=== PATIENT | female | born 1985 | race Hispanic/Latino ===

== ENCOUNTER 2024-01-06 06:31 | Inpatient (IN) | payer OTHER, SELFPAY ==
[2024-01-06] VITALS (103 sets, daily range): BP systolic 101–146; BP diastolic 21–94; PULSE 25–112; RESP 16–18; TEMP 36.2–37.6; O2SAT 89–100; BMI 28.8
--- NOTE | 2024-01-06 06:31 | LDADM ---
This patient, Aislinn Alva, was admitted to Labor/Delivery/Recovery 107 on 01/06/24 at 06:31. Plans for labor, pain management and were discussed with patient. Patient/family oriented to hospital policies and general routines including ID bracelet, bed and alarms, visiting hours, pain management, procedures, bathroom and other care routines, personal items, smoking policy, room service/diet and guest tray routines, security routines, and visiting hours. Patient/Family are encouraged to report perceived risks to care and to ask questions if they do not understand what they are told or what they should do. See OBIX for further documentation.
[2024-01-06 07:15] LABS: Basophils Percent Auto 0.6 % (0.2-1.2); Eosinophils Absolute Auto 0.1 K/mm3 (0-0.3); Eosinophils Percent Auto 1.1 % (0-4.4); Hematocrit 38.3 % (37.0-47.0); Hemoglobin 13.1 g/dL (12.0-15.0); Immature Granulocyte Absolute 0.05 K/mm3 (0.00-0.031); Immature Granulocyte Percent A 0.8 % (0-0.5); Lymphocytes Percent Auto 20.5 % (18.3-44.2); Mean Corpuscular HGB Conc 34.2 g/dl (32-36); Mean Corpuscular Hemoglobin 33.6 pg (26-34); Mean Corpuscular Volume 98.2 fl (80-100); Mean Platelet Volume 12.5 fl (7.4-10.4); Monocytes Absolute Auto 0.5 K/mm3 (0.1-0.6); Monocytes Percent Auto 7.3 % (2.6-8.5); Neutrophils Absolute Auto 4.4 K/mm3 (1.3-6.7); Neutrophils Percent Auto 69.7 % (45.5-73.1); Platelet Count Result 127 k/mm3 (150-375); Red Cell Distribution Width 13.4 % (11.5-14.5); White Blood Count 6.3 K/mm3 (4.5-10.0)
--- NOTE | 2024-01-06 07:21 | P.PNAN_ITS ---
Anes - Eval Pre Procedure Procedure: labor epidural Date/Time: 01/06/24 07:21 Surgeon: adam Preop Diagnosis: pain during labor Pre Op Diagnosis: Induction of Labor Patient Data Age: 38 Gender: F Height: 1.52 m Weight: 67 kg Last Vital Signs Pulse 65 01/06/24 07:19 BP 117/87 01/06/24 07:19 Allergies Allergy/AdvReac Type Severity Reaction Status Date / Time No Known Allergies Allergy Verified 12/26/23 15:24 Home Medications Medication Instructions Recorded Confirmed Type vits no.126-ferrous fum 1 tablet PO DAILY 12/26/23 12/26/23 History 28 mg iron-folic acid 800 mcg tablet (Classic ) Patient hx anesthesia problems: none Family hx anesthesia problems: none Results Review: All pre-operative results and documents have been reviewed as part of the pre- operative evaluation. [facility] Family History Family History (Updated 12/26/23 @ 15:26 by Jaqueline Cardona RN) Other No pertinent family history Social History Social History Smoking status: Never smoker Substance use: never Do You Feel Safe in your Home?: Yes Lack of Transportation: No Lack of Food: Never True Current Housing: I Have Housing Concerned About Future Housing: No Difficulty Paying Gas/Electric Bills: No Difficulty Paying for Meds: No Currently Unemployed: No Education: Grade School Difficulty w/ Childcare or Family Care: No Spiritual care concerns: No Exam Day of Procedure 01/06/24 07:21
[2024-01-06] MEDS: miSOPROStol 25 MCG TABLET 50 MCG BUCCAL (07:25)
[2024-01-06 08:25] LABS: Rapid Plasma Reagin Non-Reactive (NonReactive)
[2024-01-06] MEDS: LACTATED RINGERS 1,000 ML 125 ML IV CONT ×2 (11:39→12:33)
--- NOTE | 2024-01-06 12:02 | WPDOBADMIT ---
Obstetrics - Admit Note Admission Note: record reviewed. No pertinent additions to the history and/or any subsequent changes in the physical findings that are not consistent with the expected course of the were found. Patient presents for MIL indicated for growth restriction at 10%. SACHA 5.2cm at last visit this week as well, with 2x2cm pocket of fluid maintained. Cytotec per protocol. Additions to the history and/or subsequent changes in the physical findings follow. None.
[2024-01-06] MEDS: OXYTOCIN 30 UNITS/NS 500 ML 30 UNITS/500 ML BAG IV CONT (12:34)
--- NOTE | 2024-01-06 13:12 | PM.OBPNLAB ---
Pain Control Date/time seen: 01/06/24 13:12 Pain control: tolerating well and epidural Pelvic Exam Dilation (cm): 4 Effacement (%): 80 station: -2 Amniotic membrane status: Ruptured Comments: bloody show, minimal fluid Contractions Monitor mode: External Contraction frequency: 3 Status status: Category l Assessment and Plan Pitocin rate (mU/min): 2 Assessment: induction ongoing Plan: continuous present management
[2024-01-06 13:29] LABS: HIV 1/2 Ab P24 Ag Result Negative (Negative)
[2024-01-06] MEDS: OXYTOCIN 30 UNITS/NS 500 ML 30 UNITS/500 ML BAG 125 UNITS IV CONT (14:38)
--- NOTE | 2024-01-06 14:40 | PM.OBPRVD ---
OB - Vaginal Delivery Note Procedure Delivery date: 01/06/24 Events: Intrauterine Growth Restriction (IUGR) Induction method: Per Misoprostol Protocol Delivery augmentation: Rupture of Membranes and Pitocin Delivery monitor: External FHT and External Uterine Route of delivery: Episiotomy description: None Laceration Description: None Specimen: Yes Quantitative Blood Loss (ml): 50 Anesthesia type: Epidural Disposition: Floor Complications: No immediate complications Narrative: See H&P and notes for details on patient's admission and labor. She progressed to complete cervical dilation and at the appropriate time began pushing. With adequate expulsive efforts by the mother, the baby's head was delivered without difficulty. Nuchal cord was not present. The baby's left shoulder was anterior and delivered under the pubic symphysis without difficulty. The posterior shoulder and the rest of the baby delivered without difficulty. The umbilical cord was doubly clamped and cut after 60 seconds of delayed cord clamping. Care of the infant was then assumed by the nursing staff. Baby Date of : 01/06/24 Gestational Age by Date: 38 Infant gender: Female presentation: vertex position: Left Occiput Anterior Placenta delivery description: Expressed Cord Vessel Description: 3 Vessels and Delayed Cord Clamping
--- NOTE | 2024-01-06 16:45 | PC.NURSE ---
RN getting pt up to the bathroom, found to be tearful in the room. RN asked pt if she has pain and she states yes. While in the bathroom, the RN asked if the pain is physical or environmental the pt stated him in reference to father of the baby in the room and continued to be tearful. Pt would not elaborate on what is bothering her at this time. pt was moved upstairs to with FOB. Pt denies any needing anything else from the RN at this time.
--- NOTE | 2024-01-06 18:57 | PC.NURSE ---
1800. Introductions were made, then consulted with patient to assess needs related to . Mother explains she would like to breastfeed but has had a hard time maintaining her supply in the past with older siblings. Encouraged understanding of the benefits of skin to skin (demonstrating unwrapping infant and placing upright on her chest), stimulating with massage touch, changing positions to encourage wakefulness, how to watch for early feeding cues, responsive feeding, feeding on demand (aiming for 8-12 times in 24 hours, about every 2-3 hours), milk production, building/maintaining a milk supply, duration of feeding, signs of adequate intake/output and how to record on the feeding sheet. Mother works well with her infant with encouragement and education. Reviewed positioning and ear, shoulder, hip alignment, supporting the breast to facilitate a deep latch, asymmetrical latch (off-center), leading with the chin with a big, open, wide gape and body close to mother. latched optimally to the right breast in cross cradle position. Education given to the mother of how to visualize the suckling (with good rocking jaw motion), swallows (dropping of the lower jaw) and how to listen for drinking at the breast (the ka sound). Infant was able to maintain latch without pain to mother protecting the nipple with optimal positioning and latching. Reviewed comfort measures of healing with a warm, wet washcloth to rinse breast, then leave open to air-dry, good handwashing when or touching the breast/nipples to prevent infection. Mother voiced understanding of skin to skin, stimulating with massage touch, responsive feedings, hand expressed colostrum, talking to infant to encourage if it has been 2 -2.5 hours since the start of the last , to call if does not latch, or if there is discomfort with . Inpatient resources provided with feeding sheet, name written on the communication board, and the mom/baby guide. Parents voiced understanding of information, demonstrated learning and will call if there is a request for assistance. Reported to the Primary RN.
[2024-01-06] MEDS: IBUPROFEN 600 MG TABLET PO (23:25)
[2024-01-07] VITALS: BP 126/83; PULSE 57; RESP 18; TEMP 36.8; O2SAT 97
[2024-01-07 05:15] LABS: Hematocrit 35.7 % (37.0-47.0)
[2024-01-07] MEDS: MULTIVIT/MIN/PREN/FOL AC/IRON TABLET 1 TAB PO (07:48)
[2024-01-07] MEDS: DOCUSATE SODIUM 100 MG CAPSULE PO ×2 (07:48→17:13)
[2024-01-07 07:50] VITALS: BP 116/70; PULSE 54; RESP 16; TEMP 36.5; O2SAT 97
--- NOTE | 2024-01-07 08:34 | PM.OBPNVD ---
OB - PN: Subj Subjective Date/time seen: 01/07/24 08:34 Patient comments: no complaints, pain well controlled, incisional pain, tolerating diet and flatus present OB - PN: Obj Data Labs 01/07/24 04:18 Labs: Laboratory Results - last 24 hr 01/06/24 01/07/24 06:57 04:18 Hgb 12.0 Hct 35.7 L HIV 1&2 Ab/P24 Ag 4thGn Negative OB - PN A/P Plan day: 3 Plan: routine care, discharge home and other Comments: Incision check in one week. Given precautions Time Spent With Patient Time: Total time spent is greater than 50% in coordination of care (as documented) at patient's floor/unit and/or counseling patient: Exam Const: General: comfortable, no acute distress and alert Resp: Effort & Inspection: normal respiratory effort Auscultation: no crackles, no rales and no rhonchi Cardio: Rate: regular rate Heart sounds: no click, no murmurs and no rubs GI: Inspection: non-distended GI Palp: No Tenderness to palpation present (GI) Auscultation: normal bowel sounds Other: Incision - CDI Extrem: General: normal to inspection, no pedal edema and no calf tenderness
--- NOTE | 2024-01-07 08:36 | PM.OBPNVD ---
OB - PN: Subj Subjective Date/time seen: 01/07/24 08:36 Patient comments: no complaints, pain well controlled, incisional pain, tolerating diet and flatus present OB - PN: Obj Data Labs 01/07/24 04:18 Labs: Laboratory Results - last 24 hr 01/06/24 01/07/24 06:57 04:18 Hgb 12.0 Hct 35.7 L HIV 1&2 Ab/P24 Ag 4thGn Negative OB - PN A/P Plan day: 1 Plan: routine care Comments: No problems, routine care Time Spent With Patient Time: Total time spent is greater than 50% in coordination of care (as documented) at patient's floor/unit and/or counseling patient: Exam Const: General: comfortable, no acute distress and alert Resp: Effort & Inspection: normal respiratory effort Auscultation: no crackles, no rales and no rhonchi Cardio: Rate: regular rate Heart sounds: no click, no murmurs and no rubs GI: Inspection: non-distended GI Palp: No Tenderness to palpation present (GI) Auscultation: normal bowel sounds Other: Incision - CDI Extrem: General: normal to inspection, no pedal edema and no calf tenderness
--- NOTE | 2024-01-07 09:54 | WPDANLDPN2 ---
Anes-Prog Note L&D Date/Time: 01/07/24 09:54 Comfortable throughout: labor and delivery Neuraxial method: epidural Epidural/Spinal procedure site: clean & non-tender Neuro status: Neuro function grossly intact. Cardiovascular status: normal Respiratory status: normal Airway patency: baseline Mental status: baseline Post-Op hydration status: normal Vital Signs: Last Vital Signs Temp 36.5 C 01/07/24 07:50 Pulse 54 L 01/07/24 07:50 Resp 16 01/07/24 07:50 BP 116/70 01/07/24 07:50 Pulse Ox 97 01/07/24 07:50 O2 Del Method Room Air 01/06/24 20:00 Pain score (VAS): 0 I/O: Intake & Output 01/06/24 01/07/24 01/07/24 23:59 07:59 15:59 Output Total 130 Balance -130 Post-procedural complaints: none Patient feedback: Patient satisfied with anesthetic care.
--- NOTE | 2024-01-07 11:05 | PC.NURSE ---
Introductions were made, then consulted with patient to assess needs related to . Mother led the conversation with her?plans to feed?her infant and the?experience so far. Mother has concerns that baby isn't getting enough . Reassured her this is normal and it takes a few days for milk production to increase. Infant blood sugars have been very good so far. Weight and output are appropriate for 's age. Encouraged mother to call for a latch check, or if does not latch, or if there is discomfort with . Mother voiced understanding of information, demonstrated learning and will call if there is a request for assistance. Reported to the Primary RN.
[2024-01-07 18:50] VITALS: BP 128/79; PULSE 70; RESP 16; TEMP 36.1; O2SAT 99
[2024-01-07] MEDS: IBUPROFEN 600 MG TABLET PO (19:10)
[2024-01-08 08:30] VITALS: BP 130/76; PULSE 61; RESP 16; TEMP 36.6; O2SAT 100; O2SAT 99
[2024-01-08] MEDS: MULTIVIT/MIN/PREN/FOL AC/IRON TABLET 1 TAB PO (08:44)
[2024-01-08] MEDS: DOCUSATE SODIUM 100 MG CAPSULE PO (08:44)
--- NOTE | 2024-01-08 10:41 | PM.OBPNVD ---
OB - PN: Subj Subjective Date/time seen: 01/08/24 10:41 Patient comments: no complaints, pain well controlled and tolerating diet OB - PN: Obj Data Labs 01/07/24 04:18 OB - PN A/P Plan day: 2 Plan: routine care and discharge home Time Spent With Patient Time: Total time spent is greater than 50% in coordination of care (as documented) at patient's floor/unit and/or counseling patient: Exam Const: General: comfortable and no acute distress Resp: Effort & Inspection: normal respiratory effort Auscultation: no rales, no rhonchi and no wheezes Cardio: Rate: regular rate Heart sounds: no click, no murmurs and no rubs GI: GI Palp: Yes Soft to palpation and No Tenderness to palpation present (GI) Auscultation: normal bowel sounds Extrem: General: normal to inspection, no pedal edema and no calf tenderness
--- NOTE | 2024-01-08 10:41 | PM.OBDSVD ---
DS: Admitting Diagnosis Discharge Date 01/08/24 Admitting Diagnosis term DS: Discharge Diagnosis Discharge Diagnosis (1) Term delivered: Code(s): O80 - Encounter for full-term uncomplicated delivery Status: Acute OB - DS: Summary OB Procedures : None OB Procedures Intrapartum: Spontaneous Vag Delivery OB Procedures: : None Peripartum Data Laceration Description: None Episiotomy description: None Time Spent with Patient Time attestation: Total time spent providing and/or coordinating discharge services: DS: Data Data Completed and Pending Pending studies at discharge: Pending at discharge 01/06/24 14:50 Surgical [PTH] Routine Discharge Plan Discharge Discharging Clinician: Flip Sommers Patient Disposition: Home, Self-Care Activity: pelvic rest Diet: regular Patient Instructions: Antibiotic Form Stand Alone Forms: General Discharge Information Follow-up/Referrals: Flip Sommers MD [Physician] - Discharge Medications: Continued Classic 28 mg iron- 800 mcg Tablet 1 tablet PO DAILY Date of admission: 01/06/24 06:31 Primary Care Provider: ErikDo Admitting Provider: Brodie Bowen Attending physician on admission: Brodie Bowen Condition: Stable
[2024-01-08] MEDS: ACETAMINOPHEN 325 MG TABLET 650 MG PO (15:55)
--- NOTE | 2024-01-08 18:00 | PCDIET ---
Patient discharged to no care bed.
[2024-01-10 10:39] VITALS: BP 114/83; PULSE 79; RESP 16; TEMP 36.9; O2SAT 99
== END 2024-01-08 16:00 | disposition home or self-care (01) | DRG 560 ==
LOC: ANHOB2 01-08 12:32 → ANHLDR 01-10 10:54 → ANHOB2 01-10 10:54
PROVIDERS: Admitting Provider Obstetrics & Gynecology; PCP Physician Assistant; Visit Provider Obstetrics & Gynecology
DX: O36.5930 Maternal care for other known or suspected poor fetal growth, third trimester, not applicable or unspecified (principal); Z37.0 Single live birth; Z3A.38 38 weeks gestation of pregnancy
CPT/HCPCS: 36415; 85014; 85018; 85025; 86592; 86703; 86850; 86900; 86901; 88307; A9270; G0432; J2590; J2795; J7120

== ENCOUNTER 2024-08-05 03:26 | Emergency (ER) | payer OTHER, SELFPAY ==
[2024-08-05 03:27] VITALS: BP 112/67; PULSE 77; RESP 18; TEMP 36.4; O2SAT 99
--- OUTSIDE RECORDS SUMMARY | 2024-08-05 03:28 | XMS_ITS | Data Portability ---
Author Organization [facility] [place] Address [address] [place] [address] [place] [address] Assessment No assessment recorded. Plan of Treatment Reminders Order Date Submit Date Provider Last Modified By Organization Details Last Modified Time Details Appointments None recorded. Lab None recorded. Referral None recorded. Procedures None recorded. Surgeries None recorded. Imaging non-stress test 2023 024 [email or web address] [place] [facility] [address], [place], [address], 4 03:35:53 US, obstetric, biophysical profile + non-stress test 2023 024 champ [place], [address], [place], [address], 4 22:28:32 US, doppler, umbilical artery velocimetry 2023 024 champ [place], [address], [place], [address], 4 22:28:32 US, obstetric, biophysical profile + non-stress test 2023 024 champ [place], [address], [place], [address], 4 22:01:51 US, doppler, umbilical artery velocimetry 2023 024 [email or web address] [place], [address], [place], [address], 22:01:51 Medication Orders None recorded. Patient TargetsNo targets recorded. Patient InstructionsNo instructions recorded. Reason for Referral None Reported. Results Created Date Observation Date Name Description Value Unit Range Abnormal Flag Note LastModifiedBy Organization Detail LastModifiedTime 12/21/19 24 12/21/2023 US, obste tric, follo w-up No observ ation record ed. [email or web address] [place] [address], [place], [address], 12/21/2023 13:07:37 12/21/19 24 12/21/2023 US, obste tric, follo w-up No observ ation record ed. [address], [place], [address], 12/23/2023 14:20:23 12/27/19 24 12/27/2023 US, obste tric, bioph ysica l profi le + non-s tress test No observ ation record ed. [email or web address] [place] [address], [place], [address], 12/27/2023 16:51:24 12/27/19 24 12/27/2023 US, doppl er, umbil ical arter y veloc imetr y No observ ation record ed. [email or web address] [place] [address], [place], [address], 12/27/2023 16:51:38 12/27/19 24 12/27/2023 US, obste tric, bioph ysica l profi le + non-s tress test No observ ation record ed. [email or web address] [address], [place], [address], 12/27/2023 16:33:14 12/27/19 24 12/27/2023 non-s tress test No observ ation record ed. [email or web address] [place] [address], [place], [address], 12/27/2023 16:31:57 01/03/20 24 01/03/2024 non-s tress test No observ ation record ed. [email or web address] [place] [address], [place], [address], 01/03/2024 15:43:28 01/03/20 24 01/03/2024 US, obste tric, bioph ysica l profi le No observ ation record ed. [address], [place], [address], 01/04/2024 22:23:19 01/03/20 24 01/03/2024 US, obste tric, bioph ysica l profi le + non-s tress test No observ ation record ed. [facility] [address], [place], [address], 01/03/2024 17:41:47 01/03/20 24 01/03/2024 US, doppl er, umbil ical arter y veloc imetr y No observ ation record ed. [facility] [address], [place], [address], 01/03/2024 17:42:01 Result Notes None recorded. Problems Name Problem SNOMED Code Status Onset Date Resolution Date Notes Provider Name and Address Organization Details Recorded Time Pregnanc y 51833557 Completed 202301/12/2024 Karson wiley, [facility] 4 14:53:25 Advanced maternal age 742132218 Completed JUSTYNA FENG MD [address], [place], [address], [facility] 4 12:44:22 History of growth retardat ion 2225791637 9108 Completed x3 JUSTYNA FENG MD [address], [place], [address], [facility] 4 12:44:22 Abnormal cervical Papanico laou smear 359056694 Completed unsure of abnormal ity, will try to get records JUSTYNA FENG MD [address], [place], [address], [facility] 4 12:44:22 Placenta circumva llata 7633354 Completed serial growth JUSTYNA FENG MD [address], [place], [address], [facility] 4 12:44:22 growth restrict ion 78334781 Active weekly dopplers /antenat al testing, [facility] 38-39wee in JUSTYNA FENG MD [address], [place], [address], [facility] 4 12:44:22 growth restrict ion 08664812 Completed weekly dopplers /antenat al testing, [facility] 38-39wee in JUSTYNA FENG MD [address], [place], [address], [facility] 4 12:44:22 Problem Notes None recorded. Procedures Surgical History Date Name Laterality Status Provider Name and Address Organization Details Recorded Time 4 Date of Last Pap Smear completed Iman Guevara [facility] 08/10/2023 14:17:07 8 procedure on gallbladder completed Iman Guevara [facility] 08/10/2023 14:07:35 Imaging Results Imaging Date Name Status LastModified by [email or web address] Details LastModified Time 12/21/2023 US, obstetric, follow-up completed [email or web address] [place] [address], [place], [address], 12/21/2023 13:07:37 12/21/2023 US, obstetric, follow-up completed [email or web address] [address], [place], [address], 12/23/2023 14:20:23 12/27/2023 US, obstetric, biophysical profile + non-stress test completed [address], [place], [address], 12/27/2023 16:51:24 12/27/2023 US, doppler, umbilical artery velocimetry completed [address], [place], [address], 12/27/2023 16:51:38 12/27/2023 US, obstetric, biophysical profile + non-stress test completed [email or web address] [address], [place], [address], 12/27/2023 16:33:14 12/27/2023 non-stress test completed [email or web address], [place], [address], 12/27/2023 16:31:57 01/03/2024 non-stress test completed [address], [place], [address], 01/03/2024 15:43:28 01/03/2024 US, obstetric, biophysical profile completed [email or web address] [address], [place], [address], 01/04/2024 22:23:19 01/03/2024 US, obstetric, biophysical profile + non-stress test completed [facility] [address], [place], [address], 01/03/2024 17:41:47 01/03/2024 US, doppler, umbilical artery velocimetry completed [facility] [address], [place], [address], 01/03/2024 17:42:01 Procedure Notes None recorded. Medical Equipment None Reported. Allergies No known drug allergies Medications Name Sig Start Date Stop Date Status Note LastModified by Organization Details LastModified Time Miralax 17 gram/dose oral powder Take 17 g every day by oral route. 2023 active Not Available Not Available Not Avai lable metronidazo le 500 mg tablet TAKE 1 TABLET BY MOUTH TWICE DAILY FOR 7 DAYS 08/09 completed Not Available Not Available Not Available Pepcid 20 mg tablet Take 1 tablet twice a day by oral route. 2023 active Not Available Not Available Not Avai lable 28 mg iron-800 mcg tablet TAKE 1 TABLET BY MOUTH ONCE DAILY active Not Available Not Available No t Available Anusol-HC 2.5 % topical cream with perineal applicator APPLY A THIN LAYER TO THE AFFECTED AREA(S) BY TOPICAL ROUTE 2-4 TIMESDAIL Y 2023 active Not Available Not Available Not Avai lable Vitals Date Recorded Body height Body mass index (BMI) Body weight Systolic blood pressure Diastolic blood pressure Provider Name and Address Organization Details Last Updated DateTime 12/27/2023 160.02 cm 25.9 kg/m2 42706.49 g 116 mm[Hg] 76 mm[Hg] [facility] 15:42:02 Date Recorded Body height Body mass index (BMI) Body weight Systolic blood pressure Diastolic blood pressure Provider Name and Address Organization Details Last Updated DateTime 01/03/2024 160.02 cm 26.1 kg/m2 84745.52 g 117 mm[Hg] 76 mm[Hg] [facility] 15:46:15 Date Recorded Body height Body mass index (BMI) Body weight Systolic blood pressure Diastolic blood pressure Provider Name and Address Organization Details Last Updated DateTime 02/21/2024 160.02 cm 24.8 kg/m2 63307.93 g 100 mm[Hg] 65 mm[Hg] Radha Meyer [facility] 12:05:47 Social History Question Answer Notes LastModified by Organizat ion Details LastModified Time In The 14 Days Before Symptom Onset, Have You Had Close Contact With A Laboratory-confirmed COVID-19 While That Case Was Ill? No Information not available 08/10/2023 In The 14 Days Before Symptom Onset, Have You Had Close Contact With A Person Who Is Under Investigation For COVID-19 While That Person Was Ill? No Information not available 08/10/2023 Have You Been To An Area Known To Be High Risk For COVID-19? No Information not available 08/10/2023 Sex: Unknown Functional Status None recorded. Mental Status None recorded. Family History Relationship Description Onset Age of this Age Resolved Age Notes LastModified by Organization Details LastModified Time Brother Karrie jacobson [email or web address] Not available 2023 14:07:14 Medical History Condition Response Allergies (Food, seasonal, environmental ) N Other N Drug/Latex Allergies/Reactions N Breast Cancer N Blood Transfusion N Lung Disease N Dermatologic Disorders N Defects or Inherited Disease N Breast Problem N Gestational Diabetes N Hematologic disorders N Anesthesia Complications N History of STI N Deep Vein Thrombosis N Polycystic ovary syndrome N Anxiety Disorder N Autoimmune disease N Arthritis N Polyps N Infertility N History of abnormal pap N Acid Reflux (GERD) N Cancer N Varicosities N Stroke N Neurologic/Epilepsy N Endometriosis N High Cholesterol N Headaches N Fibromyalgia N Kidney Disease N Heart Problems N Thyroid Problems N Kidney or Bladder Problems N GI Problems N Eating Disorder N Anemia N Art (IVF or FET) N Psychiatric Illness N Ovarian Cancer N Diabetes N Pulmonary (TB, Asthma) N Hepatitis/Liver Disease N No Past Medical History N Eczema N Urinary Tract Infection N Abuse/Domestic Violence N Asthma N Trauma/Violence N Depression/ depression N Heart Disease N Pre-Eclampsia N Hypertension N Osteoporosis N Thrombophilias N Gynecological History Statement/Question Response Abnormal Pap Y Date of LMP 04/09/2023 Sexually Active? Y STIs/STDs N HPV Vaccine N Date of Last Pap Smear 06/27/2023 Sexual Problems? N Current Control Method None Desired Control Method None LMP Definite Obstetrics History GPAL:G 6 P 5 0 1 5 Type Value Full Term 5 Spontaneous 1 Living 5 Total 6 Past Encounters Encounter ID Performer Location Encounter Start Date Encounter Closed Date Diagnosis/Indication Diagnosis SNOMED-CT Code Diagnosis ICD10 Code Diagnosis Note [id number] JUSTYNA FENG MD [place] [address],[place] [address] 08/10/2023 13:37:01 08/17/2023 11:05:38 Advanced maternal age 206187694 O09.522 History of growth retardation 6670394103 9108 Z87.59 Gestation period, 18 weeks 04027111 Z3A.18 [id number] [facility] [address],[place] [address] 08/29/2023 14:14:26 08/29/2023 15:38:04 screening for malformation 268450231 Z36.3 Z3A.20 [id number] JUSTYNA FENG MD [place] [address],[place] [address] 08/29/2023 14:14:56 08/30/2023 08:26:30 Placenta circumvallata 0501385 O43.119 Advanced m aternal age 409139429 O09.522 History of growth retardation 1223194881 9108 Z87.59 Gestation period, 20 weeks 33783735 Z3A.20 [id number] [facility] [address],[place] [address] 09/26/2023 12:16:38 09/26/2023 14:00:18 Placenta circumvallata 2558688 O43.112 O09.522 Z3A.24 [id number] JUSTYNA FENG MD [place] [address],[place] [address] 09/26/2023 12:16:58 09/26/2023 13:08:19 Placenta circumvallata 2552888 O43.119 Advanced m aternal age 521024854 O09.522 History of growth retardation 5353464027 9108 Z87.59 Gestation period, 24 weeks 286536537 Z3A.24 [id number] JUSTYNA FENG MD [place] [address],[place] [address] 10/25/2023 09:51:29 10/25/2023 12:04:42 Advanced maternal age 536968182 O09.523 Placenta circumvallata 7295511 O43.119 History of growth retardation 7246305079 9108 Z87.59 Gestation period, 28 weeks 46833230 Z3A.28 [id number] JUSTYNA FENG MD [place] [address],[place] [address] 11/09/2023 11:10:10 11/09/2023 11:51:14 growth restriction 64440042 O36.5999 Placenta circumvallata 6281007 O43.119 Advanced m aternal age 819878642 O09.523 Gestation period, 30 weeks 07016974 Z3A.30 Acid reflux 573802587 K2 1.9 Constipation 17187723 K5 9.00 [id number] [facility] [address],[place] [address] 11/22/2023 11:07:55 11/22/2023 11:49:20 Past history of small for gestational age baby 933969873 Z87.59 Z3A.32 [id number] JUSTYNA FENG MD [place] [address] [place] [address] 11/22/2023 11:08:27 11/22/2023 12:16:47 Hemorrhoids 77787961 K64.9 Gastroesop hageal reflux disease 342304162 K21.9 Placenta circumvallata 9377628 O43.119 History of growth retardation 2975688491 9108 Z87.59 Advanced m aternal age 953569450 O09.523 [id number] Josiane Rodrigues [place] [address] [place] [address] 12/21/2023 11:25:24 12/21/2023 11:57:44 Placenta circumvallata 7106015 O43.113 O36.5930 O09.523 Z3A.36 [id number] JUSTYNA FENG MD [place] [address] [place] [address] 12/21/2023 11:25:42 12/21/2023 12:46:38 growth restriction 88516611 O36.5999 Discussed diagnosis of FGR, recommenda tion for weekly testing and UADs as well as induction between 38-39 weeks. Placenta circumvallata 0293555 O43.119 Advanced m aternal age 538795387 O09.523 Gestation period, 36 weeks 18591002 Z3A.36 - continue PNV [id number] [facility] [address] [address] 12/27/2023 14:15:02 12/27/2023 15:29:08 Small for gestational age fetus 341368216 O36.5930 Z3A.37 [id number] Radha Meyer [place] [address],[place] [address] 12/27/2023 15:16:43 12/27/2023 15:50:46 growth restriction 96859443 O36.5999 [id number] JUSTYNA FENG MD [place] [address],[place] [address] 12/27/2023 15:17:05 12/27/2023 16:25:04 growth restriction 47810125 O36.5999 Discussed diagnosis of FGR, recommenda tion for weekly testing and UADs as well as induction between 38-39 weeks. Patient to call to schedule induction Placenta circumvallata 9338169 O43.119 Advanced m aternal age 463988996 O09.523 Gestation period, 37 weeks 52019947 Z3A.37 - continue PNV [id number] [facility] [address],[place] [address] 01/03/2024 14:33:41 01/03/2024 15:53:02 Small for gestational age fetus 072553637 O36.5930 O09.523 Z3A.38 [id number] Rehana Sanchez [place] [address],[place] [address] 01/03/2024 14:33:53 01/03/2024 15:52:35 growth restriction 68229164 O36.5999 Discussed diagnosis of FGR, recommenda tion for weekly testing and UADs as well as induction between 38-39 weeks. Patient to call to schedule induction [id number] JUSTYNA FENG MD [place] [address] [address] 01/03/2024 14:34:06 01/09/2024 11:42:32 growth restriction 93112464 O36.5999 - recommend delivery prior to 39w0d, patient desires to wait until 39w2d- discussed low SACHA, recommend repeat SACHA if undelivere d by 01/05- risks of delayed delivery including increased risk of stillbirth discussed with patient who voices understand ing Placenta circumvallata 5310717 O43.119 Advanced m aternal age 656993290 O09.523 - bASA Gestation period, 38 weeks 36155986 Z3A.38 - continue PNV [id number] JUSTYNA FENG MD [place] [address] [address] 02/21/2024 11:49:14 02/21/2024 12:32:22 care 401421441 Z39.2 S/p 4 weeks ago here today for a visit.1. Patient recovering well2. Plans to continue combo feeding3. Interested in patch for contracept ion at this time. Risks, benefits, and alternativ es reviewed with the patient. Will call if she would like to start.4. Patient instructed to follow up in 6 months for well woman exam unless need arises prior Low grade squamous intraepithelial lesion on cervical Papanicolaou smear 2784899795 9105 R87.612 - hx of LSIL pap smear- will repeat at 6 month [facility] Concerns Section Related Observation LastModified by Organization Detai ls LastModified Time None Recorded Concern Status LastModified by Organization Details LastModified Time None Recorded Advance Directives Directive None Recorded Payers Encounter Date Sequence Insurance Name Policy Number Policy Knapp Covered Member ID Knapp Member ID Guarantor Name 12/27/2023 1 [facility] ON OR AFTER 11/27/20 (MEDICAID REPLACEMENT - HMO) Aislinn Schneider [id number] Aislinn Schneider 01/03/2024 1 [facility] ON OR AFTER 11/27/20 (MEDICAID REPLACEMENT - HMO) Aislinn Farrells [id number] Aislinn Torresalos 01/03/2024 1 [facility] ON OR AFTER 11/27/20 (MEDICAID REPLACEMENT - HMO) Aislinn Farrells [id number] Aislinn Schneider 01/03/2024 1 [facility] ON OR AFTER 11/27/20 (MEDICAID REPLACEMENT - HMO) Aislinn Farrells [id number] Aislinn Schneider 02/21/2024 1 [facility] ON OR AFTER 11/27/20 (MEDICAID REPLACEMENT - HMO) Aislinn Farrells [id number] Aislinn Farrells Notes Date Note Type Note Provider Name and Address Organization Details Recorded Time 02/21/2024 text/html S/P on 01/05 a t 38 weeks gestation. was complicated by FGR. Complications with delivery: none. Patient denies any specific problems since delivery. Patient overall feeling well. Patient is combo feeding without problems. Has not had a period yet. No bleeding. Bowel and bladder function are normal. Pap due 2024. Denies any signs or symptoms of depression. Is coping with parenting well. Patient has not been sexually active since delivery. Patient is interested in contraception at this time. JUSTYNA FENG MD [address], [place], [address], [facility] 02/21/2024 12:29:07 OBGyn Episode Ob Episode Information Episode Created Date Number of Fetuses Patient Bloodtype Patient rh Status Prepregnancy Weight lbs Domestic Partner Domestic Partner Phone Father Name Dining Service Worker Status 08/10/19 24 1 CLOSED Fetus Data First Name Last Name Admitted to NICU Weight (g) Sex Living Outcome Pediatric Complications Fetus ID Race Codes Race Delivery Type 2976.47 0704 Full Term 45643 Vaginal Delivery Roshan Calculation Initial Roshan Date Initial Exam Date Initial Exam Provider Initial Ultrasound Date Last Menstrual Period Date Ultra Sound Weeks Gestation 0 Eighteen To Twenty Week Roshan Update Ultra Sound Date Fundal Height At Umbil Quickening Date Ultra Sound Latest Weeks Gestation Final Roshan Confirmed By Final Roshan Confirmed Date Final Roshan Date Ultra Sound Latest Days Gestation 0 0 Menstrual History Last Menstrual Date Menses Monthly On Bcp Conception Prior Menses Frequency Hcg Plus Date Menarche Onset Age Delivery Information Delivery Date Delivery Type Labor Anesthesia Weeks Gestation Incision Type Labor Labor Length Hrs Delivered By Post Complications Tubal Sterilization Discharge Date Comments 5 40 Discharge Information Feeding Method Contraceptive Method Maternal HG B and HCT Levels Ob Episode Information Episode Created Date Number of Fetuses Patient Bloodtype Patient rh Status Prepregnancy Weight lbs Domestic Partner Domestic Partner Phone Father Name Dining Service Worker Status 08/12/19 24 1 138 CLOSED Fetus Data First Name Last Name Admitted to NICU Weight (g) Sex Living Outcome Pediatric Complications Fetus ID Race Codes Race Delivery Type 2126.21 25 F true Full Term [id number] Vaginal Delivery Problems Problem Notes Problem Name Start Date End Date Resolution Snomed Code Not e Placenta circumvallata 8355265 serial growth Advanced maternal age 538534678 History of growth retardation 96211569613630 x3 Abnormal cervical Papanicolaou smear 152290541 unsure of abnormality, will try to get records growth restriction 26785472 weekly dopplers/antenat al testing, [place] 38-39weeks Roshan Calculation Initial Roshan Date Initial Exam Date Initial Exam Provider Initial Ultrasound Date Last Menstrual Period Date Ultra Sound Weeks Gestation 01/14/2024 08/12/2023 04/09/2023 0 Eighteen To Twenty Week Roshan Update Ultra Sound Date Fundal Height At Umbil Quickening Date Ultra Sound Latest Weeks Gestation Final Roshan Confirmed By Final Roshan Confirmed Date Final Roshan Date Ultra Sound Latest Days Gestation 0 08/17/2023 01/14/20 24 0 Pre-lynette Flowsheet Flowsheet Date 08/10/2023 Perdomo Score Blood Edema Fundus Height Fundus Units Glucose Ketones Leukocytes Nitrite Labor Signs Protein Cervic Dilation Cervic Effacement Cervic Station 18 Type Weight in lbs Pre/Post Dialysis Refused Weight 138.939900037367 BP Diastolic BP Location Tested BP Systolic BP Type 64 99 Fetus Heart Rate Present A 140 Fetus Movement A Yes Comments Patient presents to [facility] care. Patient reports headaches, improves with tylenol. Some movement. No cramping or bleeding. No nausea. Hx of FGR in 3 out of the 4 pregnancies. Denies HTN or GDM. x4. Had hx of abnormal pap smear in 06/27/23; patient unsure of what the abnormality was; will attempt to get records. Reports she has had labs drawn already, records not available. Will also attempt to get records prior to drawing again. Discussed bASA for AMA. No anatomy US yet, will return in 2 weeks. Flowsheet Date 08/29/2023 Perdomo Score Blood Edema Fundus Height Fundus Units Glucose Ketones Leukocytes Nitrite Labor Signs Protein Cervic Dilation Cervic Effacement Cervic Station Type Weight in lbs Pre/Post Dialysis Refused BP Diastolic BP Location Tested BP Systolic BP Type Fetus Heart Rate Present Fetus Movement Comments Flowsheet Date 08/29/2023 Perdomo Score Blood Edema Fundus Height Fundus Units Glucose Ketones Leukocytes Nitrite Labor Signs Protein Cervic Dilation Cervic Effacement Cervic Station Type Weight in lbs Pre/Post Dialysis Refused Weight 136.517337692696 BP Diastolic BP Location Tested BP Systolic BP Type 66 93 Fetus Heart Rate Present A 150 Fetus Movement A Yes Comments Doing well. Baby active. No cramping or bleeding. Has a lesion on leg, painful has been there for many months. Will set up with PCP for removal. Would like dental referral and counseling referral as well. Says she is doing well overall. Anatomy US complete and normal today, aside from circumvallate placenta. Plan for serial growth US. EFW 28%. RTC 4 weeks. Flowsheet Date 09/26/2023 Perdomo Score Blood Edema Fundus Height Fundus Units Glucose Ketones Leukocytes Nitrite Labor Signs Protein Cervic Dilation Cervic Effacement Cervic Station Type Weight in lbs Pre/Post Dialysis Refused BP Diastolic BP Location Tested BP Systolic BP Type Fetus Heart Rate Present Fetus Movement Comments Flowsheet Date 09/26/2023 Perdomo Score Blood Edema Fundus Height Fundus Units Glucose Ketones Leukocytes Nitrite Labor Signs Protein Cervic Dilation Cervic Effacement Cervic Station Type Weight in lbs Pre/Post Dialysis Refused Weight 139.388570837340 BP Diastolic BP Location Tested BP Systolic BP Type 63 97 Fetus Heart Rate Present A 157 Fetus Movement A Yes Comments Doing well. Good movem ent. No cramping or bleeding. Still do not have labs from prior office; will draw with GCT next visit. Seeing PCP on for leg lesion. EFW 17%, normal fluid. Vertex. Flowsheet Date 10/25/2023 Perdomo Score Blood Edema Fundus Height Fundus Units Glucose Ketones Leukocytes Nitrite Labor Signs Protein Cervic Dilation Cervic Effacement Cervic Station Type Weight in lbs Pre/Post Dialysis Refused Weight 144.329209538628 BP Diastolic BP Location Tested BP Systolic BP Type 70 105 Fetus Heart Rate Present A 155 Fetus Movement A Yes Comments Good movement. BH cont ractions, no bleeding or LOF. Had leg lesion removed, no issues. Returns on 10/30 for suture removal. Received labs, all normal. Low risk female NIPT. GCT and 28 week labs today. Will repeat growth US at 32 weeks due to hx of FGR x3 in prior pregnancies and low-normal EFW at 24 weeks. RTC 2 weeks. Flowsheet Date 11/09/2023 Perdomo Score Blood Edema Fundus Height Fundus Units Glucose Ketones Leukocytes Nitrite Labor Signs Protein Cervic Dilation Cervic Effacement Cervic Station Type Weight in lbs Pre/Post Dialysis Refused Weight 143.24061382270 BP Diastolic BP Location Tested BP Systolic BP Type 72 95 Fetus Heart Rate Present A 140 Fetus Movement A Yes Comments Doing well, baby active. No strong contractions, LOF, VB. Failed 1h GCT, passed 3h GTT. Having issues with constipation and hemorrhoids, discussed preparation H and miralax. Discussed Tdap vaccine. Also having reflux, will try pepcid. RTC 2 weeks for repeat growth US. Flowsheet Date 11/22/2023 Perdomo Score Blood Edema Fundus Height Fundus Units Glucose Ketones Leukocytes Nitrite Labor Signs Protein Cervic Dilation Cervic Effacement Cervic Station Type Weight in lbs Pre/Post Dialysis Refused BP Diastolic BP Location Tested BP Systolic BP Type Fetus Heart Rate Present Fetus Movement Comments Flowsheet Date 11/22/2023 Perdomo Score Blood Edema Fundus Height Fundus Units Glucose Ketones Leukocytes Nitrite Labor Signs Protein Cervic Dilation Cervic Effacement Cervic Station Type Weight in lbs Pre/Post Dialysis Refused BP Diastolic BP Location Tested BP Systolic BP Type Fetus Heart Rate Present A 144 Fetus Movement A Yes Comments Doing well, no issues. Good movement. Reflux improved with Tums. Hemorrhoids improving. EFW 11%, AC 12%, normal SACHA. Will continue to monitor growth with US at 36 weeks. Received tdap vaccine. Discussed preadmission appointment. RTC 2 weeks. Flowsheet Date 12/21/2023 Perdomo Score Blood Edema Fundus Height Fundus Units Glucose Ketones Leukocytes Nitrite Labor Signs Protein Cervic Dilation Cervic Effacement Cervic Station Type Weight in lbs Pre/Post Dialysis Refused BP Diastolic BP Location Tested BP Systolic BP Type Fetus Heart Rate Present Fetus Movement Comments Flowsheet Date 12/21/2023 Perdomo Score Blood Edema Fundus Height Fundus Units Glucose Ketones Leukocytes Nitrite Labor Signs Protein Cervic Dilation Cervic Effacement Cervic Station 1cm 50% -3 Type Weight in lbs Pre/Post Dialysis Refused Weight 144.552187722244 BP Diastolic BP Location Tested BP Systolic BP Type 73 111 Fetus Heart Rate Present A 130 Fetus Movement A Yes Comments Good movement. Rare co ntractions, no LOF or VB. EFW 10%, normal UADs. BPP 01/04. Discussed diagnosis of FGR, recommendation for weekly testing and UADs as well as induction between 38-39 weeks. Patient voices understanding and will discuss timing with . GBS collected today. SVe 1cm. RTC 1 week. Flowsheet Date 12/27/2023 Perdomo Score Blood Edema Fundus Height Fundus Units Glucose Ketones Leukocytes Nitrite Labor Signs Protein Cervic Dilation Cervic Effacement Cervic Station Type Weight in lbs Pre/Post Dialysis Refused BP Diastolic BP Location Tested BP Systolic BP Type Fetus Heart Rate Present Fetus Movement Comments Flowsheet Date 12/27/2023 Perdomo Score Blood Edema Fundus Height Fundus Units Glucose Ketones Leukocytes Nitrite Labor Signs Protein Cervic Dilation Cervic Effacement Cervic Station Type Weight in lbs Pre/Post Dialysis Refused BP Diastolic BP Location Tested BP Systolic BP Type Fetus Heart Rate Present Fetus Movement Comments Flowsheet Date 12/27/2023 Perdomo Score Blood Edema Fundus Height Fundus Units Glucose Ketones Leukocytes Nitrite Labor Signs Protein Cervic Dilation Cervic Effacement Cervic Station Type Weight in lbs Pre/Post Dialysis Refused Weight 146.832420771974 BP Diastolic BP Location Tested BP Systolic BP Type 76 116 Fetus Heart Rate Present Fetus Movement A Yes Comments Doing well, baby active. No ctx, LOF, VB. BPP 03/08. UADs wnl. Discussed again recommendation for induction between 38w-39w due to increased risk of stillbirth after that time. Patient voices understanding, will talk to and call clinic. If still , continue weekly testing. Flowsheet Date 01/03/2024 Perdomo Score Blood Edema Fundus Height Fundus Units Glucose Ketones Leukocytes Nitrite Labor Signs Protein Cervic Dilation Cervic Effacement Cervic Station Type Weight in lbs Pre/Post Dialysis Refused BP Diastolic BP Location Tested BP Systolic BP Type Fetus Heart Rate Present Fetus Movement Comments Flowsheet Date 01/03/2024 Perdomo Score Blood Edema Fundus Height Fundus Units Glucose Ketones Leukocytes Nitrite Labor Signs Protein Cervic Dilation Cervic Effacement Cervic Station Type Weight in lbs Pre/Post Dialysis Refused BP Diastolic BP Location Tested BP Systolic BP Type Fetus Heart Rate Present Fetus Movement Comments Flowsheet Date 01/03/2024 Perdomo Score Blood Edema Fundus Height Fundus Units Glucose Ketones Leukocytes Nitrite Labor Signs Protein Cervic Dilation Cervic Effacement Cervic Station Type Weight in lbs Pre/Post Dialysis Refused Weight 147.540914917685 BP Diastolic BP Location Tested BP Systolic BP Type 76 117 Fetus Heart Rate Present A 140 Fetus Movement A Yes Comments Intermittent ctx, no VB or L OF. Good movement. Discussed recommendation again for delivery by 39w0d due to growth restriction. Patient would like induction on 01/08 (39w2d); discussed risks including increased risk of stillbirth with FGR. Patient voices understanding and would like to wait until 01/08. SACHA 5.2cm today, recommend repeat SACHA on 01/05 if not delivered prior to r/o oligohydramnios. Menstrual History Last Menstrual Date Menses Monthly On Bcp Conception Prior Menses Frequency Hcg Plus Date Menarche Onset Age 1104/09/2023 Genetic Screening And Infection History Question Response Note Mental Retardation/Autism false Patient's Age Will Be 35 Years Or Older At Estim ated Date of Delivery true Thalassemia (Urdu, Eritrean, Mediterranean, Or Background): MCV < 80 false Neural Tube Defect (Meningomyelocele, Spina Bifi da, Or Anencephaly) false Congenital Heart Defect false Down Syndrome false Jadon-Sachs (eg, Mandaeism, Cajun, Cook Islander-Guatemalan) f alse Sachin Disease false Sickle Cell Disease Or Trait () false Hemophilia Or Other Blood Disorders false Muscular Dystrophy false Cystic Fibrosis false [place]'s Ch[place] false Intellectual Disability/Autism false If Yes, Was Person Tested For Fragile X? false Other Inherited Genetic Or Chromosomal Disorder false Maternal Metabolic Disorder (eg, Type 1 Diabetes , PKU) false Patient Or Baby's Father Had A Child With Defects Not Listed Above false Recurrent Loss, Or A Stillbirth false Medications (including Suppl ements, Vitamins, Herbs, OTC Drugs), Illicit/Recreational Drugs, Alcohol false If Yes, Agent(s) And Strength/Dosage false Any Other Genetic History false Live With Someone With TB Or Exposed To TB false Patient Or Partner Has History Of Genital Herpes false Rash Or Viral Illness Since Last Menstrual Perio d false History Of STD, Gonorrhea, Chlamydia, HPV, Syphi lis false Other Infection History false History of HIV false History of Hepatitis false Prior GBS-infected child false Hemoglobinopathy Or Carrier false Other Structural Defect false Recent Travel History Outside of Country false Delivery Information Delivery Date Delivery Type Labor Anesthesia Weeks Gestation Incision Type Labor Labor Length Hrs Delivered By Post Complications Tubal Sterilization Discharge Date Comments 4 Induce d Regional-Ep idural 38.6 false [place] Abnormal cervical Papanicol aou smear,Adv anced maternal age ,F etal growth restricti on,Histor y of growth retardati on,Placen ta circumval ivelisse; IUGR Discharge Information Feeding Method Contraceptive Method Maternal HG B and HCT Levels Ob Episode Information Episode Created Date Number of Fetuses Patient Bloodtype Patient rh Status Prepregnancy Weight lbs Domestic Partner Domestic Partner Phone Father Name Dining Service Worker Status 10/25/19 24 1 CLOSED Fetus Data First Name Last Name Admitted to NICU Weight (g) Sex Living Outcome Pediatric Complications Fetus ID Race Codes Race Delivery Type , [place] ous [id number] Roshan Calculation Initial Roshan Date Initial Exam Date Initial Exam Provider Initial Ultrasound Date Last Menstrual Period Date Ultra Sound Weeks Gestation 0 Eighteen To Twenty Week Roshan Update Ultra Sound Date Fundal Height At Umbil Quickening Date Ultra Sound Latest Weeks Gestation Final Roshan Confirmed By Final Roshan Confirmed Date Final Roshan Date Ultra Sound Latest Days Gestation 0 0 Menstrual History Last Menstrual Date Menses Monthly On Bcp Conception Prior Menses Frequency Hcg Plus Date Menarche Onset Age Delivery Information Delivery Date Delivery Type Labor Anesthesia Weeks Gestation Incision Type Labor Labor Length Hrs Delivered By Post Complications Tubal Sterilization Discharge Date Comments 3 Discharge Information Feeding Method Contraceptive Method Maternal HG B and HCT Levels Ob Episode Information Episode Created Date Number of Fetuses Patient Bloodtype Patient rh Status Prepregnancy Weight lbs Domestic Partner Domestic Partner Phone Father Name Dining Service Worker Status 08/10/19 24 1 CLOSED Fetus Data First Name Last Name Admitted to NICU Weight (g) Sex Living Outcome Pediatric Complications Fetus ID Race Codes Race Delivery Type Full Term [id number] Vaginal Delivery Roshan Calculation Initial Roshan Date Initial Exam Date Initial Exam Provider Initial Ultrasound Date Last Menstrual Period Date Ultra Sound Weeks Gestation 0 Eighteen To Twenty Week Roshan Update Ultra Sound Date Fundal Height At Umbil Quickening Date Ultra Sound Latest Weeks Gestation Final Roshan Confirmed By Final Roshan Confirmed Date Final Roshan Date Ultra Sound Latest Days Gestation 0 0 Menstrual History Last Menstrual Date Menses Monthly On Bcp Conception Prior Menses Frequency Hcg Plus Date Menarche Onset Age Delivery Information Delivery Date Delivery Type Labor Anesthesia Weeks Gestation Incision Type Labor Labor Length Hrs Delivered By Post Complications Tubal Sterilization Discharge Date Comments 7 38 Discharge Information Feeding Method Contraceptive Method Maternal HG B and HCT Levels Ob Episode Information Episode Created Date Number of Fetuses Patient Bloodtype Patient rh Status Prepregnancy Weight lbs Domestic Partner Domestic Partner Phone Father Name Dining Service Worker Status 08/10/19 24 1 CLOSED Fetus Data First Name Last Name Admitted to NICU Weight (g) Sex Living Outcome Pediatric Complications Fetus ID Race Codes Race Delivery Type Full Term [id number] Vaginal Delivery Roshan Calculation Initial Roshan Date Initial Exam Date Initial Exam Provider Initial Ultrasound Date Last Menstrual Period Date Ultra Sound Weeks Gestation 0 Eighteen To Twenty Week Roshan Update Ultra Sound Date Fundal Height At Umbil Quickening Date Ultra Sound Latest Weeks Gestation Final Roshan Confirmed By Final Roshan Confirmed Date Final Roshan Date Ultra Sound Latest Days Gestation 0 0 Menstrual History Last Menstrual Date Menses Monthly On Bcp Conception Prior Menses Frequency Hcg Plus Date Menarche Onset Age Delivery Information Delivery Date Delivery Type Labor Anesthesia Weeks Gestation Incision Type Labor Labor Length Hrs Delivered By Post Complications Tubal Sterilization Discharge Date Comments 0 39 Discharge Information Feeding Method Contraceptive Method Maternal HG B and HCT Levels Ob Episode Information Episode Created Date Number of Fetuses Patient Bloodtype Patient rh Status Prepregnancy Weight lbs Domestic Partner Domestic Partner Phone Father Name Dining Service Worker Status 08/10/19 24 1 CLOSED Fetus Data First Name Last Name Admitted to NICU Weight (g) Sex Living Outcome Pediatric Complications Fetus ID Race Codes Race Delivery Type 2721.55 2 Full Term [id number] Vaginal Delivery Roshan Calculation Initial Roshan Date Initial Exam Date Initial Exam Provider Initial Ultrasound Date Last Menstrual Period Date Ultra Sound Weeks Gestation 0 Eighteen To Twenty Week Roshan Update Ultra Sound Date Fundal Height At Umbil Quickening Date Ultra Sound Latest Weeks Gestation Final Roshan Confirmed By Final Roshan Confirmed Date Final Roshan Date Ultra Sound Latest Days Gestation 0 0 Menstrual History Last Menstrual Date Menses Monthly On Bcp Conception Prior Menses Frequency Hcg Plus Date Menarche Onset Age Delivery Information Delivery Date Delivery Type Labor Anesthesia Weeks Gestation Incision Type Labor Labor Length Hrs Delivered By Post Complications Tubal Sterilization Discharge Date Comments 5 38 Discharge Information Feeding Method Contraceptive Method Maternal HG B and HCT Levels
--- OUTSIDE RECORDS SUMMARY | 2024-08-05 03:28 | XMS_ITS | Clinical Summary ---
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 Gender Identity Not on file Sexual Orientation Not on file Plan of Treatment Health Maintenance Due Date Last Done Comments Hepatitis C Virus (HCV) Screening 1986 Hepatitis B Immunization (1 of 3 - 19+ 3-dose series) 2005 Pap Smear 09/10/2007 Cervical Cancer Screening (CCS) 2016 HPV/Cotest 2016 Influenza Immunization (#1) 2024 11/0 11/2018, 07/05/2016, 03/29/2015, Additional history exists SARS-COV-2 Immunization (2023- season) 2024 Respiratory Syncytial Virus (RSV) Immunization (Adult) (1 - 1-dose 75+ series) 2061 DTaP/Tdap/Td Immunization Discontinued 01/16/2017, TdaP Immunization Completed 01/16/2017 Meningococcal Immunization (ACWY) Aged Out No longer eligible based on patient's age to complete this topic Pneumococcal Immunization Combined Aged Out No longer eligible based on patient's age to complete this topic Rotavirus Immunization Aged Out No lo nger eligible based on patient's age to complete this topic
--- OUTSIDE RECORDS SUMMARY | 2024-08-05 03:28 | XMS_ITS | Data Portability ---
Author Organization [facility], autoContract Address [address] [place] [address] Assessment Encounter Date Assessment Date Assessment LastModified by Organization Details LastModified Time 10/19/2017 10/19/2017 32yo F w symptomatic cholelithiasis : Patient states that her insurance is expiring soon and there is a chance she may go to another surgeon to get her surgery done sooner. We will schedule her in the coming weeks and if she is still on the insurance, we will proceed. I discussed with the patient the risks and benefits of surgery, including the possibility of bile duct injury. I also mentioned a cystic duct leak and retained gallstones requiring ERCP later on. I explained the chance of open surgery and that there may be some changes in post-op bowel habits that may linger for a few weeks or need medication to correct. In addition, I did explain that there is no medical therapy that is a suitable alternative to cholecystectom y. They understood and wish to proceed. Any remaining questions were answered and we plan for surgery in the near future. [email or web address] Not available 10/25/2017 14:59:35 12/28/2017 12/28/2017 32yoF s/p lap mariella on 12/08. She is doing very well. Tolerating diet, eating fine. Satisfied with care thus far. I discussed the pathology report and all questions were answered. Discharge from clinic with PRN follow-up [email or web address] Not available 12/28/2017 12:59:05 Plan of Treatment Reminders Order Date Submit Date Provider Last Modified By Organization Details Last Modified Time Details Appointments None record ed. Lab None record ed. Referral None record ed. Procedures None record ed. Surgeries None record ed. Imaging None record ed. Medication Orders None record ed. Patient TargetsNo targets recorded. Patient InstructionsNo instructions recorded. Reason for Referral None Reported. Results Created Date Observation Date Name Description Value Unit Range Abnormal Flag Note LastModifiedBy Organization Detail LastModifiedTime 10/19/19 18 10/06/2017 US, abdom en No observ ation record ed. [email or web address] Not Available 17:56:11 Result Notes None recorded. Procedures Surgical History Date Name Laterality Status Provider Name and Address Organization Details Recorded Time 12/09/19 18 Laparoscopic cholecystectomy completed Mireille Shelton [facility] 12/15/2017 16:53:40 Imaging Results Imaging Date Name Status LastModified by Organiz ation Details LastModified Time 10/06/2017 US, abdomen completed [email or web address] Information not available 10/18/2017 17:56:11 Procedure Notes None recorded. Medical Equipment None Reported. Allergies No known drug allergies Medications Name Sig Start Date Stop Date Status Note LastModified by Organization Details LastModified Time [email or web address] active Not Available Not Available Not Available Vitals Date Recorded Body height Body mass index (BMI) Body weight Heart rate Systolic blood pressure Diastolic blood pressure Provider Name and Address Organization Details Last Updated DateTime 8 160.02 cm 22.1 kg/m2 76865.0 5 g 65 /min 135 mm[Hg] 85 mm[Hg] Mary Beth Nam [facility] 8 18:34:00 Date Recorded Body height Body mass index (BMI) Body weight Heart rate Systolic blood pressure Diastolic blood pressure Provider Name and Address Organization Details Last Updated DateTime 8 160.02 cm 20.7 kg/m2 23184.3 1 g 74 /min 101 mm[Hg] 70 mm[Hg] Mary Beth Nam [facility] 8 12:50:48 Social History Question Answer Notes LastModified by Organizat ion Details LastModified Time Tobacco Smoking Status Never Smoker Mary Beth Nam [facility] 10/19/2017 18:34:31 What Is Your Level Of Alcohol Consumption? None [email or web address] Information not available 10/19/2017 Is Blood Transfusion Acceptable In An Emergency? No [email or web address] Information not available 10/19/2017 Are You Currently Employed? Yes [email or web address] Information not available 10/19/2017 Marital Status [email or web address] Informat ion not available 10/19/2017 What Was The Date Of Your Most Recent Tobacco Screening? 10/19/2017 Information not available 12/20/2018 How Many Children Do You Have? 4 [email or web address] Information not available 10/19/2017 Sex: Unknown Functional Status None recorded. Mental Status None recorded. Family History Relationship Description Onset Age of this Age Resolved Age Notes LastModified by Organization Details LastModified Time Sister History of hypertension [email or web address] Not available 10/19/2017 18:34:27 Medical History Condition Response Coronary Artery Disease N Gout N Other N Thyroid Disease N Prostate Disease N Bleeding Disorders N Blood disorders N Bowl Obstruction N Urinary Incontinence N COPD N Anorexia N Depression N Anemia N Colon Polyps N Deep Vein Thrombosis N Kidney disease N Diabetes N Anxiety Disorder N Arthritis N Seizure N History of Heart Attack N Pain N Cancer N Stroke N Diverticulitis N Morbid Obesity N Asthma N HIV/AIDS N Fecal Incontinence N Sleep Apnea N High Cholesterol N GERD/Reflux N Hepatitis N Liver Disease N Pulmonay disease N Heart Disease N Pulmonary Embolism N PCOS N Hypertension N Gynecological HistoryNo gynecological history recorded. Obstetrics History GPAL:G 0 P 0 0 0 0 Past Encounters Encounter ID Performer Location Encounter Start Date Encounter Closed Date Diagnosis/Indication Diagnosis SNOMED-CT Code Diagnosis ICD10 Code Diagnosis Note [id number] Joo Contreras MD [facility] [address] [place] [address] 10/19/2017 18:03:55 10/21/2017 14:06:17 [id number] Joo Contreras MD [facility] [address] [place] [address] 12/28/2017 12:44:31 12/29/2017 18:20:45 Health Concerns Section Related Observation LastModified by Organization Detai ls LastModified Time None Recorded Concern Status LastModified by Organization Details LastModified Time None Recorded Advance Directives Directive None Recorded Payers Encounter Date Sequence Insurance Name Policy Number Policy Knapp Covered Member ID Knapp Member ID Guarantor Name 10/19/2017 1 [facility] (MEDICAID HMO) [facility] Aislinn Schneider [id number] Aislinn Schneider 12/28/2017 1 [facility] (MEDICAID HMO) [facility] Aislinn Schneider [id number] Aislinn Schneider Notes Date Note Type Note Provider Name and Address Organization Details Recorded Time 10/19/2017 text/html 32yo F who prese nted to the office for evaluation of cholelithiasis. Patient presented to [facility] ED on 10/06 with worsening abdominal pain over the course of a week and was found to have cholelithiasis without signs of cholecystitis. Patient was discharged home and given follow-up instructions. Joo Contreras MD [address], [place], [address], [facility] 10/25/2017 14:59:48 12/28/2017 text/html S/p lap mariella on 12/08. The patient is doing well with minimal pain. Wounds are healing well. No fevers. Tolerating diet and having normal BMs. Activity is improving slowly. They are here to discuss their pathology. Joo Contreras MD [address], [place], [address], [facility] 01/03/2018 14:19:14 OBGyn Episode No OBEpisode recorded.
--- NOTE | 2024-08-05 03:39 | ED.GENADULT ---
HPI - General Adult General Chief complaint: Unspecified Stated complaint: sore throat Time Seen by Provider: 08/05/24 03:27 Source: patient Mode of arrival: ambulatory Limitations: no limitations History of Present Illness HPI narrative: This is a 34-year-old febrile , presents to the emergency department complaining of sore throat, runny nose, cough myalgias for the past 3 days. She rates her pain 7/10. She complains of nausea, though denies vomiting or diarrhea. She denies any known sick contacts or recent travel. She states she believes she may be . She states her last menstrual period was June 08, 2024 though she has irregular periods. She has no other complaints at this time. Related Data Home Medications ?Medication ?Instructions ?Recorded ?Confirmed ?Last Taken ?Type vits no.126-ferrous fum 1 tablet PO DAILY 12/26/23 12/26/23 1 Day Ago History 28 mg iron-folic acid 800 mcg ~12/25/23 tablet (Classic ) Allergies Allergy/AdvReac Type Severity Reaction Status Date / Time No Known Allergies Allergy Verified 12/26/23 15:24 Review of Systems Review of Systems: Last menstrual period June 08, 2024 All systems reviewed & are unremarkable except as noted in HPI and below PMFSH Past Medical History Medical History (Updated 08/05/24 @ 05:29 by Alek Pineda MD) No significant past medical history Surgical History Surgical History (Updated 08/05/24 @ 03:42 by Alek Pineda MD) No significant past surgical history Family History Family History Other No pertinent family history Social History Social History Smoking status: Never smoker Substance use: never Do You Feel Safe in your Home?: Yes Lack of Transportation: No Lack of Food: Never True Current Housing: I Have Housing Concerned About Future Housing: No Difficulty Paying Gas/Electric Bills: No Difficulty Paying for Meds: No Currently Unemployed: No Education: Grade School Difficulty w/ Childcare or Family Care: No Spiritual care concerns: No Exam Narrative: GENERAL: Well-developed, well-nourished, and in no acute distress. Appears tired HEAD: Normocephalic, atraumatic. EYES: PERRLA and EOMI. ENT: Nares clear, no rhinorrhea or epistaxis. Mucous membranes moist. Oropharynx with tonsillar erythema without hypertrophy exudate or other lesions. NECK: Supple. No adenopathy or masses. CHEST: Clear to auscultation. No respiratory distress. No wheezes rales or rhonchi HEART: Regular rate and rhythm. No murmur heard. Normal peripheral pulses. ABDOMEN: Soft, nontender, nondistended, normal active bowel sounds. EXTREMITIES: Normal range of motion. No edema. SKIN: Warm, dry, no rash. NEURO: Alert and oriented x3. No focal deficit. Moving all 4 limbs spontaneously PSYCH: Normal mood and affect. Course Course Emergency Course: 05:28 - test positive. Urinalysis not concerning for urinary tract infection. The patient tested negative for COVID, influenza and RSV. A strep RT PCR was negative. I suspect a separate viral upper respiratory infection as the cause of the patient's symptoms. Will discharge with recommendation for supportive care and primary care/OB follow-up. I discussed the findings and recommendations with the patient. Discussed return and emergency precautions including signs/symptoms of ACS and respiratory distress. The patient voiced understanding and agreement with the plan. All questions answered to her satisfaction. Vital Signs Vital signs: Vital Signs Temperature 97.6 F 08/05/24 03:27 Pulse Rate 77 08/05/24 03:27 Respiratory Rate 18 08/05/24 03:27 Blood Pressure 112/67 08/05/24 03:27 Pulse Oximetry 99 08/05/24 03:27 Oxygen Delivery Room Air 08/05/24 03:27 Temperature 97.6 F 08/05/24 03:27 Pulse Rate 77 08/05/24 03:27 Respiratory Rate 18 08/05/24 03:27 Blood Pressure 112/67 08/05/24 03:27 Pulse Oximetry 99 08/05/24 03:27 Oxygen Delivery Room Air 08/05/24 03:27 Medical Decision Making MDM Narrative Medical decision making narrative: Plan: Labs, symptomatic control, reassess Differential Diagnosis Differential Diagnosis: , UTI, COVID, RSV, influenza, viral pharyngitis, strep pharyngitis, other Vital Signs Vital Signs: Vital Signs Temperature 97.6 F 08/05/24 03:27 Pulse Rate 77 08/05/24 03:27 Respiratory Rate 18 08/05/24 03:27 Blood Pressure 112/67 08/05/24 03:27 Pulse Oximetry 99 08/05/24 03:27 Oxygen Delivery Room Air 08/05/24 03:27 Temperature 97.6 F 08/05/24 03:27 Pulse Rate 77 08/05/24 03:27 Respiratory Rate 18 08/05/24 03:27 Blood Pressure 112/67 08/05/24 03:27 Pulse Oximetry 99 08/05/24 03:27 Oxygen Delivery Room Air 08/05/24 03:27 Lab Data Labs: Lab Results 08/05/24 08/05/24 08/05/24 Range/Units 03:53 03:54 03:56 Urine Color Yellow (Yellow) Urine Appearance Clear (Clear) Urine pH 6.5 (5.0-9.0) Ur Specific [place] 1.018 (1.001-1.035) Urine Protein Negative (Negative) mg/dL Urine Glucose (UA) Negative (Negative) mg/dL Urine Ketones Negative (Negative) mg/dL Ur Blood (Man) Negative (Negative) Urine Nitrate Negative (Negative) Urine Bilirubin Negative (Negative) Urine Urobilinogen 0.2 (<2.0) mg/dL Leukocyte Esterase Rfl Negative (Negative) DAYO/UL POC Urine HCG, Qual Positive (Negative) Influenza A (RT-PCR) Negative (Negative) Influenza B (RT-PCR) Negative (Negative) RSV (RT-PCR) Negative (Negative) SARS-CoV-2 RNA (RT-PCR) Negative (Negative) Group A Strep (PCR) Pending Discharge Plan Discharge Clinical Impression: Acute sore throat, , Upper respiratory infection, viral Patient Disposition: Home, Self-Care Condition: Stable Instructions: Antibiotic Form, at 7 to 10 Weeks (ED) Additional Instructions: You were seen in the emergency department. You tested negative for COVID, influenza and RSV. A test was positive. Your urinalysis was not concerning for urinary tract infection. You tested negative for strep. I suspect your symptoms are related to a separate viral infection. I recommend plenty of fluids, vitamins and Tylenol as needed for pain. I recommend following up with your primary care doctor and OB doctor. If you develop rapidly spreading neck swelling with fevers and increasing pain, difficulty breathing, difficulty swelling, or if you have other emergent concerns for life, limb, or eyesight, return to the emergency department. Patient Language: Polish Prescriptions: No Action Classic 28 mg iron- 800 mcg Tablet 1 tablet PO DAILY Follow-up/Referrals: Jesse,HOLLI Jha [Primary Care Provider] - 2 Weeks Brodie Bowen MD [Physician] - 2 Weeks Time of Disposition: 05:29
--- OUTSIDE RECORDS SUMMARY | 2024-08-05 03:50 | XMS_ITS | Clinical Summary ---
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
[2024-08-05 03:59] LABS: BEDSIDEPREGUCG Positive (Negative)
[2024-08-05 04:10] LABS: Add Urine Microscopic? NO; Appearance Urine Clear (Clear); Bilirubin Urine Negative (Negative); Blood Urine Negative (Negative); Color Urine Yellow (Yellow); Glucose Urine UA Negative (Negative); Ketones Urine Negative (Negative); Leukocyte Esterase Ur Negative LEU/UL (Negative); Nitrate Urine Negative (Negative); Protein Urine Negative (Negative); Specific Grav Ur 1.018 (1.001-1.035); Urobilinogen Urine 0.2 mg/dL (<2.0); pH Urine 6.5 (5.0-9.0)
[2024-08-05 04:46] LABS: Influenza A QL RT-PCR Negative (Negative); Influenza B QL RT-PCR Negative (Negative); RSV RNA, RT-PCR Negative (Negative); SARS-CoV-2 RNA PCR Negative (Negative)
[2024-08-05 05:26] LABS: Strep Group A RT-PCR NOT DETECTED (Negative)
== END 2024-08-05 05:44 | disposition home or self-care (01) ==
PROVIDERS: Emergency Provider Preventive Medicine Aerospace Medicine; PCP Physician Assistant
DX: O99.519 Diseases of the respiratory system complicating pregnancy, unspecified trimester (principal); J06.9 Acute upper respiratory infection, unspecified; J02.9 Acute pharyngitis, unspecified; Z20.822 Contact with and (suspected) exposure to COVID-19
CPT/HCPCS: 81003; 81025; 87637; 87651; 99283

== ENCOUNTER 2025-02-27 21:21 | Observation (INO) | payer OTHER, SELFPAY ==
--- NOTE | ~2025-02-27 | US_ITS ---
EXAMINATION: US OB BPP wo non-stress DATE: 02/28/2025 08:18 CDT INDICATION: GI bleeding TECHNIQUE: Real-time transabdominal obstetric ultrasound. FINDINGS: No prior studies for comparison. There is a single living fetus in vertex presentation. The placenta is fundal without placenta previa. cardiac activity and movement is noted with a heart rate of 134 beats per minute. SACHA is normal measuring 8.9 cm. Biophysical profile: breathin of 2 movement: 2 of 2 tone: 2 of 2 Amniotic flud pocket: 2 of 2 Total score: 8 of 8 IMPRESSION: 1. Single living intrauterine in vertex presentation. 2: Total biophysical profile score of 8/8. Reviewed, dictated and finalized at location B.
--- OUTSIDE RECORDS SUMMARY | 2025-02-27 21:40 | XMS_ITS | Continuity of Care Document ---
Author Organization [facility] Address [address] [place] [address] Assessment No assessment recorded. Plan of Treatment Reminders Order Date Submit Date Provider Last Modified By Organization Details Last Modified Time Details Appointments U/S OB BPP 2024 10:00A M ULTRASOUND Not available Not available Not available NST 2024 10:30A M NST SCHEDULE Not available Not available Not available OB ROUTINE 2024 11:00A M JUSTYNA FENG MD Not available Not available Not available U/S OB BPP 2024 10:30A M ULTRASOUND Not available Not available Not available NST 2024 11:00A M NST SCHEDULE Not available Not available Not available OB ROUTINE 2024 11:30A M JUSTYNA FENG MD Not available Not available Not available U/S OB BPP 2024 10:00A M ULTRASOUND Not available Not available Not available NST 2024 10:30A M NST SCHEDULE Not available Not available Not available OB ROUTINE 2024 11:00A M JUSTYNA FENG MD Not available Not available Not available Lab None recorde d. Referral None recorde d. Procedures None recorde d. Surgeries None recorde d. Imaging None recorde d. Medication Orders None recorde d. Patient TargetsNo targets recorded. Patient InstructionsNo instructions recorded. Reason for Referral None Reported. Results Created Date Observation Date Name Description Value Unit Range Abnormal Flag Note LastModifiedBy Organization Detail LastModifiedTime 10/09/19 25 10/08/2024 [UNIT Y] ANEUP LOIDY NIPT fraction 8.8% normal Not Available [facility] [address], [place], [address], 10/08/2024 16:18:49 10/09/19 25 10/08/2024 [UNIT Y] ANEUP LOIDY NIPT 22Q11.2 microdeletio n LOW RISK <1 in 10,000 normal Not Available [facility] [address], [place], [address], 10/08/2024 16:18:49 10/09/19 25 10/08/2024 [UNIT Y] ANEUP LOIDY NIPT sex chromosome aneuploidy NOT DETECT ED normal Not Available [facility] [address], [place], [address], 10/08/2024 16:18:49 10/09/19 25 10/08/2024 [UNIT Y] ANEUP LOIDY NIPT monosomy X LOW RISK <1 in 10,000 normal Not Available [facility] [address], [place], [address], 10/08/2024 16:18:49 10/09/19 25 10/08/2024 [UNIT Y] ANEUP LOIDY NIPT trisomy 13 LOW RISK <1 in 10,000 normal Not Available [facility] [address], [place], [address], 10/08/2024 16:18:49 10/09/19 25 10/08/2024 [UNIT Y] ANEUP LOIDY NIPT trisomy 18 LOW RISK <1 in 10,000 normal Not Available [facility] [address], [place], [address], 10/08/2024 16:18:49 10/09/19 25 10/08/2024 [UNIT Y] ANEUP LOIDY NIPT trisomy 21 LOW RISK <1 in 10,000 normal Not Available [facility] [address], [place], [address], 10/08/2024 16:18:49 10/09/19 25 10/08/2024 [UNIT Y] ANEUP LOIDY NIPT sex MALE normal Not Available [facility] [address], [place], [address], 10/08/2024 16:18:49 10/09/19 25 10/08/2024 [UNIT Y] ANEUP LOIDY NIPT gestation SINGLE TON normal Not Available [facility] [address], [place], [address], 10/08/2024 16:18:49 10/09/19 25 10/08/2024 [UNIT Y] ANEUP LOIDY NIPT for detailed report, see pdf See PDF normal Not Available [facility] [address], [place], [address], 10/08/2024 16:18:49 09/14/19 25 09/13/2024 CBC W/DIF F WBC 8.0 10'3/ uL 3.5-10 .5 Not Available [facility] (Lab) [address] [facility], [place], [address], 09/14/2024 10:49:07 09/14/19 25 09/13/2024 CBC W/DIF F RBC 3.92 10'6/ uL (based on docume nted legal sex) 3.80-5 .20 Not Available [facility] (Lab) [address] , [place], [address], 09/14/2024 10:49:07 09/14/19 25 09/13/2024 CBC W/DIF F HGB 12.8 g/dL (based on docume nted legal sex) 11.6-1 5.4 Not Available [facility] (Lab) [address], [place], [address], 09/14/2024 10:49:07 09/14/19 25 09/13/2024 CBC W/DIF F HCT 37.0 % (based on docume nted legal sex) 34.0-4 5.0 Not Available [facility] (Lab) [address], [place], [address], 09/14/2024 10:49:07 09/14/19 25 09/13/2024 CBC W/DIF F MCV 94.4 fL 80.0-9 9.0 Not Available [facility] (Lab) [address], [place], [address], 09/14/2024 10:49:07 09/14/19 25 09/13/2024 CBC W/DIF F MCH 32.7 pg 27.0-3 4.0 Not Available [facility] (Lab) [address], [place], [address], 09/14/2024 10:49:07 09/14/19 25 09/13/2024 CBC W/DIF F MCHC 34.6 g/dL 32.0-3 5.5 Not Available [facility] (Lab) [address], [place], [address], 09/14/2024 10:49:07 09/14/19 25 09/13/2024 CBC W/DIF F RDW 13.1 % 11.0-1 5.0 Not Available [facility] (Lab) [address], [place], [address], 09/14/2024 10:49:07 09/14/19 25 09/13/2024 CBC W/DIF F plt 211 10'3/ uL 150-40 0 Not Available [facility] (Lab) [address], [place], [address], 09/14/2024 10:49:07 09/14/19 25 09/13/2024 CBC W/DIF F MPV 11.4 fL 8.8-12 .1 Not Available [facility] (Lab) [address], [place], [address], 09/14/2024 10:49:07 09/14/19 25 09/13/2024 CBC W/DIF F neutrophils 70.4 % 34.0-7 3.0 Not Available [facility] (Lab) [address] [place], [address], 09/14/2024 10:49:07 09/14/19 25 09/13/2024 CBC W/DIF F lymphocytes 21.6 % 15.0-5 0.0 Not Available [facility] (Lab) [address] [facility], [place], [address], 09/14/2024 10:49:07 09/14/19 25 09/13/2024 CBC W/DIF F monocytes 5.5 % 1.0-15 .0 Not Available [facility] (Lab) [address] [facility], [place], [address], 09/14/2024 10:49:07 09/14/19 25 09/13/2024 CBC W/DIF F eosinophils 1.5 % 0.0-8. 0 Not Available [facility] (Lab) [address] [facility], [place], [address], 09/14/2024 10:49:07 09/14/19 25 09/13/2024 CBC W/DIF F basophils 0.6 % 0.0-2. 0 Not Available [facility] (Lab) [address] [facility], [place], [address], 09/14/2024 10:49:07 09/14/19 25 09/13/2024 CBC W/DIF F immature granulocytes 0.4 % no define d refere nce range Immat ure Granu locyt es (IG) repre sents autom ated enume ratio n of Metam yeloc ytes, Myelo cytes and Promy elocy neto when IG is < 5%. Blast s are not inclu ded in IG and repor roland separ ately if prese nt. Not Available [facility] (Lab) [address] [facility], [place], [address], 09/14/2024 10:49:07 09/14/19 25 09/13/2024 CBC W/DIF F absolute neutrophils 5.6 10'3/ uL 1.5-8. 0 Not Available [facility] (Lab) [address] [facility], [place], [address], 09/14/2024 10:49:07 09/14/19 25 09/13/2024 CBC W/DIF F absolute lymphocytes 1.7 10'3/ uL 1.0-4. 0 Not Available [facility] (Lab) [address] [facility], [place], [address], 09/14/2024 10:49:07 09/14/19 25 09/13/2024 CBC W/DIF F absolute monocytes 0.4 10'3/ uL 0.2-1. 0 Not Available [facility] (Lab) [address] [facility], [place], [address], 09/14/2024 10:49:07 09/14/19 25 09/13/2024 CBC W/DIF F absolute eosinophils 0.1 10'3/ uL 0.0-0. 6 Not Available [facility] (Lab) [address] [facility], [place], [address], 09/14/2024 10:49:07 09/14/19 25 09/13/2024 CBC W/DIF F absolute basophils 0.1 10'3/ uL 0.0-0. 3 Not Available [facility] (Lab) [address] [facility], [place], [address], 09/14/2024 10:49:07 09/14/19 25 09/13/2024 CBC W/DIF F absolute immature granulocytes 0.0 10'3/ uL 0.00-0 .10 Refer ence range s for nonbi nary/ inter sex or unspe cifie d gende r patie nts have not been estab lishe d. Pleas e refer to the follo wing table for range s estab lishe d for cisge nder patie nts and evalu ate in the clini sinan kalyani xt of the indiv idual patie nt: https ://umang nino book. nm.or g/gen derx Not Available [facility] (Lab) [address] [facility], [place], [address], 09/14/2024 10:49:07 09/14/19 25 09/13/2024 TYPE/ RH/SC REEN ABO/Rh type O POS Not Available [facility] (Lab) [address] [facility], [place], [address], 09/14/2024 10:49:07 09/14/19 25 09/13/2024 TYPE/ RH/SC REEN antibody screen NEG Not Available [facility] (Lab) [address] [facility], [place], [address], 09/14/2024 10:49:07 09/14/19 25 09/13/2024 TYPE/ RH/SC REEN exp date 2024 23:59 Not Available [facility] (Lab) [address] [facility], [place], [address], 09/14/2024 10:49:07 09/14/19 25 09/13/2024 HIV 1/2 ANTIG EN/AN TIBOD Y, REFLE X CONFI RMATI ON HIV antigen/anti body Nonrea ctive nonrea ctive HIV-1 antig en and HIV-1 /HIV- 2 antib odies were not detec roland. No labor atory evide nce of HIV infec tion. Not Available [facility] (Lab) [address] [facility], [place], [address], 09/14/2024 10:49:08 09/14/19 25 09/13/2024 HEPAT ITIS B SURFA CE ANTIG EN hepatitis B surface antigen Non-re active non-re active This assay was perfo rmed using [employer] ratio n reage nts and test kits. Value s obtai linus with other assay metho ds or kits canno t be used inter ferrera eably . Not Available [facility] (Lab) [address] [facility], [place], [address], 09/14/2024 10:49:08 09/14/19 25 09/13/2024 HEPAT ITIS C ANTIB LIDA SCREE N, REFLE X TO CONFI RMATI ON hepatitis C antibody Non-re active non-re active Antib odies to HCV Not Detec roland, does not exclu de the possi bilit y of expos ure to HCV. Not Available [facility] (Lab) [address], [place], [address], 09/14/2024 10:49:08 09/14/19 25 09/13/2024 RUBEL LA IGG ANTIB LIDA, QUANT rubella antibodies, IgG Reacti ve reacti ve Not Available [facility] (Lab) [address], [place], [address], 09/14/2024 10:49:09 09/14/19 25 09/13/2024 RUBEL LA IGG ANTIB LIDA, QUANT rubella antibodies, IgG quant 80.9 IU/mL >=10 Non-r eacti ve (Non- Immun e) <10 IU/mL React [place] (Immu ne) > or = 10 IU/mL Not Available [facility] (Lab) [address], [place], [address], 09/14/2024 10:49:09 09/14/19 25 09/13/2024 HEMOG LOBIN A1C hemoglobin A1C 5.3 % 4.0-5. 6 The Ameri can Diabe neto [employer]oc iatio n recom mends that a prima ry goal of thera py donald d be a HBA1C of < 7% and that physi cians shoul d reeva luate the treat ment regim en in patie nts with HBA1C value s consi stent ly > 8%. <5.7% Sherrell l 5.7 - 6.4% Incre ased risk for diabe neto >=6.5 % Diagn ostic of diabe neto <7.0% Goal of thera py >8.0% Actio n sugge sted Not Available [facility] (Lab) [address] [facility], [place], [address], 09/14/2024 10:49:09 09/14/19 25 09/13/2024 RPR SCREE N, REFLE X TITER /CONF IRMAT ION RPR qualitative Nonrea ctive nonrea ctive Not Available [facility] (Lab) [address] [facility], [place], [address], 09/14/2024 10:49:10 01/02/20 25 01/01/2025 GTT - GESTA LENARD L SCREE N, ACOG OB glucose, 1 hour screen 143 mg/dL 70-135 high Not Available [facility] (Lab) [address], [place], [address], 01/02/2025 11:30:22 09/14/19 25 09/13/2024 US, obste tric, nucha l trans lucen cy No observ ation record ed. [facility] [address], [place], [address], 09/13/2024 13:55:21 09/14/19 25 09/13/2024 US, obste tric, nucha l trans lucen cy No observ ation record ed. [email or web address] [facility] [address], [place], [address], 09/13/2024 22:02:23 11/02/19 25 11/01/2024 US, obste tric, 2nd or 3rd trime ster No observ ation record ed. [email or web address] [facility] [address], [place], [address], 11/01/2024 18:26:37 11/02/19 25 11/01/2024 US, obste tric, follo w-up No observ ation record ed. JUAN [address], [place], [address], 11/06/2024 14:11:53 08/05/01/01/2025 US, obste tric, follo w-up No observ ation record ed. [email or web address] [facility] [address], [place], [address], 01/01/2025 13:29:10 01/02/20 25 01/01/2025 US, obste tric, follo w-up No observ ation record ed. [facility] [address], [place], [address], 01/02/2025 17:47:01 02/06/2002/05/2025 US, obste tric, follo w-up No observ ation record ed. [email or web address] [facility] [address], [place], [address], 02/05/2025 12:45:30 02/06/2002/05/2025 US, obste tric, follo w-up No observ ation record ed. [email or web address] [address], [place], [address], 02/07/2025 00:00:31 02/27/2002/26/2025 US, obste tric, bioph ysica l profi le + non-s tress test No observ ation record ed. [email or web address] [facility] [address], [place], [address], 02/26/2025 12:30:21 02/27/2002/26/2025 US, obste tric, bioph ysica l profi le + non-s tress test No observ ation record ed. JUAN [address], [place], [address], 02/26/2025 15:11:07 02/27/20 25 02/26/2025 non-s tress test No observ ation record ed. [facility] [address], [place], [address], 02/26/2025 20:09:22 02/27/20 25 non-s tress test No observ ation record ed. JUAN [facility] [address], [place], [address], 02/26/2025 20:09:23 Result Notes None recorded. Problems Name Problem SNOMED Code Status Onset Date Resolution Date Notes Provider Name and Address Organization Details Recorded Time Advanced maternal age 911438749 Completed JUSTYNA FENG MD [address], [place], [address], [facility] 4 12:44:22 History of growth retardat ion 9495486076 9108 Completed x3 JUSTYNA FENG MD [address], [place], [address], [facility] 4 12:44:22 Abnormal cervical Papanico laou smear 204954333 Completed unsure of abnormal ity, will try to get records JUSTYNA FENG MD [address], [place], [address], [facility] 4 12:44:22 Placenta circumva llata 9884223 Completed serial growth JUSTYNA FENG MD [address], [place], [address], [facility] 4 12:44:22 growth restrict ion 01390033 Active weekly dopplers /antenat al testing, [facility] 38-39wee ut JUSTYNA FENG MD [address], [place], [address], [facility] 4 12:44:22 growth restrict ion 21642720 Completed weekly dopplers /antenat al testing, [facility] 38-39wee ut JUSTYNA FENG MD [address], [place], [address], [facility] 4 12:44:22 Pregnanc y 64471208 Completed 202301/12/2024 Wendi Florence null, [facility] 5 12:35:15 Pregnanc y 61826823 Active 2024 Wendi Florence null, [facility] 5 12:35:15 Past pregnanc y history of small for gestatio nal age baby 468854256 Active 2024 constitu tionally small children induced multiple times for growth Flip Sommers MD [address], [place], [address], [facility] 5 12:53:01 Environm ental allergy 353454220 Active 2024 given recommen dations Flip Sommers MD [address], [place], [address], [facility] 5 12:03:21 Problem Notes None recorded. Procedures Surgical History Date Name Laterality Status Provider Name and Address Organization Details Recorded Time 4 Date of Last Pap Smear completed [facility] 08/10/2023 14:17:07 8 procedure on gallbladder completed [facility] 08/10/2023 14:07:35 Imaging Results None recorded. Procedure Notes None recorded. Medical Equipment None Reported. Allergies No known drug allergies Medications Name Sig Start Date Stop Date Status Note LastModified by Organization Details LastModified Time Miralax 17 gram/dose oral powder Take 17 g every day by oral route. 09/13 completed Not Available Not Available Not Available metronidazo le 500 mg tablet TAKE 1 TABLET BY MOUTH TWICE DAILY FOR 7 DAYS 08/09 completed Not Available Not Available Not Available Pepcid 20 mg tablet Take 1 tablet twice a day by oral route. 09/13 completed Not Available Not Available Not Available 28 mg iron-800 mcg tablet TAKE 1 TABLET BY MOUTH ONCE DAILY DIRECTED active Not Available Not Available No t Available Anusol-HC 2.5 % topical cream with perineal applicator APPLY A THIN LAYER TO THE AFFECTED AREA(S) BY TOPICAL ROUTE 2-4 TIMESDAIL Y 09/13 completed Not Available Not Available Not Available Vitals Date Recorded Body height Body mass index (BMI) Body weight Body height Body mass index (BMI) Body weight Systolic And Diastolic Systolic And Diastolic Provider Name and Address Organization Details Last Updated DateTime 5 160.02 cm 26.9 kg/m2 55715.0 4 g 160.02 cm 26.9 kg/m2 29597.0 4 g 120/83 mm[Hg] 120/83 mm[Hg] Jenn Knox [facility] 5 12:34:46 Social History Question Answer Notes LastModified by [...] (Food, seasonal, environmental ) N Other N Breast Cancer N Drug/Latex Allergies/Reactions N Blood Transfusion N Dermatologic Disorders N Lung Disease N Defects or Inherited Disease N Breast Problem N Gestational Diabetes N Hematologic disorders N Anesthesia Complications N History of STI N Deep Vein Thrombosis N Polycystic ovary syndrome N Anxiety Disorder N Autoimmune disease N Arthritis N Infertility N Polyps N Acid Reflux (GERD) N History of abnormal pap N Cancer N Stroke N Varicosities N Neurologic/Epilepsy N Endometriosis N High Cholesterol N Headaches N Fibromyalgia N Kidney Disease N Heart Problems N Kidney or Bladder Problems N Thyroid Problems N GI Problems N Eating Disorder [...] Gynecological History Statement/Question Response Abnormal Pap Y Flow Moderate Date of LMP 06/08/2024 Was last menstrual period normal Y STIs/STDs N HPV Vaccine N Duration of Flow (days) 5 Current Control Method Are cycles usually normal Y Frequency of Cycle (Q days) 28 Sexually Active? Y Menses Monthly Y Date of Last Pap Smear 06/27/2023 Sexual Problems? N Desired Control Method None LMP Approximate Obstetrics History GPAL:G 7 P 5 0 1 5 Type Value Full Term 5 Spontaneous 1 Living 5 Total 7 Past Encounters Encounter ID Performer Location Encounter Start Date Encounter Closed Date Diagnosis/Indication Diagnosis SNOMED-CT Code Diagnosis ICD10 Code Diagnosis IMO Codes Diagnosis Note [id number] JUSTYNA FENG MD [facility] [address],[place] [address] 02/05/2025 11:35:36 02/05/2025 12:03:59 Multigravida of advanced maternal age 269175079 O09.523 Z87.59 Z3A.33 [id number] MD Uriel MCDOWELL [address] [place] [address] 02/05/2025 11:37:19 02/05/2025 13:07:18 Multigravida of advanced maternal age 679992767 O09.523 44224410 Gestation period, 33 weeks 84564310 Z3A.33 7272788 - continue PNV [id number] JUSTYNA FENG MD [facility] [address] [place] [address] 02/19/2025 12:35:01 02/19/2025 14:19:26 Gestation period, 36 weeks 69585382 Z3A.36 7769820 - continue PNV Multigravi da of advanced maternal age 692415745 O09.523 97926379 - discussed bASA- will start weekly testing [id number] JUSTYNA FENG MD [facility] [address] [address] 02/26/2025 11:34:52 02/26/2025 12:42:18 Poor growth affecting management 427098554 O36.5990 57211388 [id number] JUSTYNA FENG MD [facility] [address],[place] [address] 02/26/2025 11:35:01 02/26/2025 12:05:13 care: obstetric risk 872973703 O09.293 O09.523 Z3A.36 3714856 [id number] JUSTYNA FENG MD [facility] [address],[place] [address] 02/26/2025 11:35:10 02/26/2025 16:06:53 Multigravida of advanced maternal age 404001818 O09.523 70740408 - discussed bASA- continue testing Gestation period, 36 weeks 70673224 Z3A.36 9850920 - continue PNV- GBS neg Health Concerns Section Related Observation LastModified by Organization Detai ls LastModified Time None Recorded Concern Status LastModified by Organization Details LastModified Time None Recorded Payers Encounter Date Sequence Insurance Name Policy Number Policy Knapp Covered Member ID Knapp Member ID Guarantor Name 02/26/2025 1 [facility] ON OR AFTER 11/27/20 (MEDICAID REPLACEMENT - HMO) Aislinn Schneider [id number] Aislinn Schneider Notes Date Note Type Note Provider Name and Address Organization Details Recorded Time 02/26/2025 text/html Generic HPI TemplateReported by Patient JUSTYNA FENG MD [address], [place], [address], [facility] 02/26/2025 15:54:27 OBGyn Episode Ob Episode Information Episode Created Date Number of Fetuses Patient Bloodtype Patient rh Status Prepregnancy Weight lbs Domestic Partner Domestic Partner Phone Father Name Sort Line Worker Status 09/14/19 25 1 O Positive 140 Francine o OPEN Fetus Data First Name Last Name Admitted to NICU Weight (g) Sex Living Outcome Pediatric Complications Fetus ID Race Codes Race Delivery Type [id number] Problems Problem Notes Problem Name Start Date End Date Resolution Snomed Code Not e Past history of small for gestational age baby 09/13/2024 640921804 constit utionally small childreninduced multiple times for growth Environmental allergy 10/12/2024 132890004 given recommend ations Roshan Calculation Initial Roshan Date Initial Exam Date Initial Exam Provider Initial Ultrasound Date Last Menstrual Period Date Ultra Sound Weeks Gestation 09/13/2024 08/07/2024 06/08/2024 7 Eighteen To Twenty Week Roshan Update Ultra Sound Date Fundal Height At Umbil Quickening Date Ultra Sound Latest Weeks Gestation Final Roshan Confirmed By Final Roshan Confirmed Date Final Roshan Date Ultra Sound Latest Days Gestation 0 [email or web address] 09/13/2024 03/20/20 25 0 Pre-lynette Flowsheet Flowsheet Date 09/13/2024 Perdomo Score Blood Edema Fundus Height Fundus Units Glucose Ketones Leukocytes Nitrite Labor Signs Protein Cervic Dilation Cervic Effacement Cervic Station Type Weight in lbs Pre/Post Dialysis Refused Weight 140.457302553337 BP Diastolic BP Location Tested BP Systolic BP Type 60 94 Fetus Heart Rate Present A 145 Fetus Movement A No Comments this patient is a 39-year-ol d multiparous female at 12 weeks' gestation who presents for initial care. She has a history of term vaginal births. Her medical, surgical, obstetric history is unremarkable. She is vaccinated. She was given precautions recommendations for . We talked about vaccines in . Talked about care in detail. She is having genetic testing. She had a normal 12 week ultrasound. To begin routine care. Flowsheet Date 10/12/2024 Perdomo Score Blood Edema Fundus Height Fundus Units Glucose Ketones Leukocytes Nitrite Labor Signs Protein Cervic Dilation Cervic Effacement Cervic Station Type Weight in lbs Pre/Post Dialysis Refused Weight 143.646395231943 BP Diastolic BP Location Tested BP Systolic BP Type 66 L arm 101 sitting Fetus Heart Rate Present A 144 Present Fetus Movement A Yes Comments Flowsheet Date 11/01/2024 Perdomo Score Blood Edema Fundus Height Fundus Units Glucose Ketones Leukocytes Nitrite Labor Signs Protein Cervic Dilation Cervic Effacement Cervic Station Type Weight in lbs Pre/Post Dialysis Refused BP Diastolic BP Location Tested BP Systolic BP Type Fetus Heart Rate Present Fetus Movement Comments Flowsheet Date 11/01/2024 Perdomo Score Blood Edema Fundus Height Fundus Units Glucose Ketones Leukocytes Nitrite Labor Signs Protein Cervic Dilation Cervic Effacement Cervic Station Type Weight in lbs Pre/Post Dialysis Refused 145.1220305809 BP Diastolic BP Location Tested BP Systolic BP Type 69 L arm 104 sitting Fetus Heart Rate Present Fetus Movement A Yes Comments no complaints, no problems, routine care, no contractions, no vaginal bleeding, no loss of fluid, no cramping Flowsheet Date 11/01/2024 Perdomo Score Blood Edema Fundus Height Fundus Units Glucose Ketones Leukocytes Nitrite Labor Signs Protein Cervic Dilation Cervic Effacement Cervic Station Type Weight in lbs Pre/Post Dialysis Refused Weight 145.919209304240 BP Diastolic BP Location Tested BP Systolic BP Type 69 L arm 104 sitting Fetus Heart Rate Present A 144 Fetus Movement A Yes Comments no complaints, no problems, routine care, no contractions, no vaginal bleeding, no loss of fluid, no cramping Flowsheet Date 12/03/2024 Perdomo Score Blood Edema Fundus Height Fundus Units Glucose Ketones Leukocytes Nitrite Labor Signs Protein Cervic Dilation Cervic Effacement Cervic Station neg trace Type Weight in lbs Pre/Post Dialysis Refused Weight [id number] BP Diastolic BP Location Tested BP Systolic BP Type 78 L arm 139 sitting Fetus Heart Rate Present A 140 Fetus Movement A Yes Comments Good movement. No cram ping or bleeding. EFW 22% at anatomy US, will repeat next visit due to hx of FGR fetus in prior pregnancies. RTC 4 weeks. Flowsheet Date 01/01/2025 Perdomo Score Blood Edema Fundus Height Fundus Units Glucose Ketones Leukocytes Nitrite Labor Signs Protein Cervic Dilation Cervic Effacement Cervic Station Type Weight in lbs Pre/Post Dialysis Refused BP Diastolic BP Location Tested BP Systolic BP Type Fetus Heart Rate Present Fetus Movement Comments Flowsheet Date 01/01/2025 Perdomo Score Blood Edema Fundus Height Fundus Units Glucose Ketones Leukocytes Nitrite Labor Signs Protein Cervic Dilation Cervic Effacement Cervic Station Type Weight in lbs Pre/Post Dialysis Refused Weight 147.022332413085 BP Diastolic BP Location Tested BP Systolic BP Type 62 R arm 93 sitting 63 L arm 99 sitting Fetus Heart Rate Present A Present Fetus Movement A Yes Comments Doing well, good movem ent. No cramping or bleeding. GCT and labs today. EFW 46%, vertex. Repeat at 32 weeks for hx of FGR. Discussed tdap vaccine. RTC 2 weeks. Flowsheet Date 01/16/2025 Perdomo Score Blood Edema Fundus Height Fundus Units Glucose Ketones Leukocytes Nitrite Labor Signs Protein Cervic Dilation Cervic Effacement Cervic Station Type Weight in lbs Pre/Post Dialysis Refused [id number] BP Diastolic BP Location Tested BP Systolic BP Type 71 L arm 108 sitting Fetus Heart Rate Present A 140 Fetus Movement A Yes Comments Good movement. No cram ping or bleeding. Increased fatigue. Failed 1h GCT, declined 3h GTT and 2 weeks of blood sugar checks. Discussed risks of undiagnosed gestational diabetes. Will recheck growth in 2 weeks and if elevated, would again recommend blood sugar monitoring. RTC 2 weeks. Flowsheet Date 02/05/2025 Perdomo Score Blood Edema Fundus Height Fundus Units Glucose Ketones Leukocytes Nitrite Labor Signs Protein Cervic Dilation Cervic Effacement Cervic Station Type Weight in lbs Pre/Post Dialysis Refused BP Diastolic BP Location Tested BP Systolic BP Type Fetus Heart Rate Present Fetus Movement Comments Flowsheet Date 02/05/2025 Perdomo Score Blood Edema Fundus Height Fundus Units Glucose Ketones Leukocytes Nitrite Labor Signs Protein Cervic Dilation Cervic Effacement Cervic Station Type Weight in lbs Pre/Post Dialysis Refused [id number] BP Diastolic BP Location Tested BP Systolic BP Type 79 L arm 119 sitting Fetus Heart Rate Present A 133 Fetus Movement A Yes Comments Doing well, good movem ent. No strong cramping or bleeding. EFW 23%, FL 2%. Vertex. Discussed Tdap, RSV, and preadmission. RTC 2 weeks. Flowsheet Date 02/19/2025 Perdomo Score Blood Edema Fundus Height Fundus Units Glucose Ketones Leukocytes Nitrite Labor Signs Protein Cervic Dilation Cervic Effacement Cervic Station Type Weight in lbs Pre/Post Dialysis Refused [phone] BP Diastolic BP Location Tested BP Systolic BP Type 81 L arm 119 sitting Fetus Heart Rate Present Fetus Movement A Yes Comments Good movement. No cram ping or bleeding. Will start testing for AMA. Desires spontaneous labor. GBS collected. RTC 1 week. Flowsheet Date 02/26/2025 Perdomo Score Blood Edema Fundus Height Fundus Units Glucose Ketones Leukocytes Nitrite Labor Signs Protein Cervic Dilation Cervic Effacement Cervic Station Type Weight in lbs Pre/Post Dialysis Refused Weight 152.823355237259 BP Diastolic BP Location Tested BP Systolic BP Type 83 L arm 120 sitting Fetus Heart Rate Present Fetus Movement A Yes Comments Flowsheet Date 02/26/2025 Perdomo Score Blood Edema Fundus Height Fundus Units Glucose Ketones Leukocytes Nitrite Labor Signs Protein Cervic Dilation Cervic Effacement Cervic Station Type Weight in lbs Pre/Post Dialysis Refused BP Diastolic BP Location Tested BP Systolic BP Type Fetus Heart Rate Present Fetus Movement Comments Flowsheet Date 02/26/2025 Perdomo Score Blood Edema Fundus Height Fundus Units Glucose Ketones Leukocytes Nitrite Labor Signs Protein Cervic Dilation Cervic Effacement Cervic Station Type Weight in lbs Pre/Post Dialysis Refused Weight 152.185049698120 BP Diastolic BP Location Tested BP Systolic BP Type 83 L arm 120 sitting Fetus Heart Rate Present A Present Fetus Movement A Yes Comments Doing well, no issues. Irreg ular contractions. BPP 03/08. GBS negative. Labor precautions reviewed. RTC 1 week. Menstrual History Last Menstrual Date Menses Monthly On Bcp Conception Prior Menses Frequency Hcg Plus Date Menarche Onset Age 0106/[birth year]24 true 29 Delivery Information Delivery Date Delivery Type Labor Anesthesia Weeks Gestation Incision Type Labor Labor Length Hrs Delivered By Post Complications Tubal Sterilization Discharge Date Comments Discharge Information Feeding Method Contraceptive Method Maternal HG B and HCT Levels
--- OUTSIDE RECORDS SUMMARY | 2025-02-27 21:41 | XMS_ITS | Continuity of Care Document ---
Author Organization [facility] Address [address] [place] [address] [place] [address] Assessment No assessment recorded. Plan of Treatment [...] recorde d. Surgeries None recorde d. Imaging US, obstetr ic, biophys ical profile + non-str ess test 2024 025 [email or web address] [place], [address], [place], [address], 02/26/2025 12:11:44 Medication Orders None recorde d. Patient TargetsNo targets recorded. Patient InstructionsNo instructions recorded. Reason for Referral None Reported. Results Created Date Observation Date Name Description Value Unit Range Abnormal Flag Note LastModifiedBy Organization Detail LastModifiedTime 10/09/19 25 10/08/2024 [UNIT Y] ANEUP LOIDY NIPT fraction 8.8% normal Not Available [facility] [address], [place], [address], 10/08/2024 16:18:49 10/09/19 25 10/08/2024 [UNIT Y] ANEUP LOIDY NIPT 22Q11.2 microdeletio n LOW RISK <1 in 10,000 normal Not Available [facility] [address], [place], [address], 10/08/2024 16:18:49 10/09/19 25 10/08/2024 [UNIT Y] ANEUP LOIDY NIPT sex chromosome aneuploidy NOT DETECT ED normal Not Available [facility] [address], [place], [address], 10/08/2024 16:18:49 10/09/19 25 10/08/2024 [UNIT Y] ANEUP LOIDY NIPT monosomy X LOW RISK <1 in 10,000 normal Not Available [facility] [address], [place], [address], 10/08/2024 16:18:49 10/09/19 25 10/08/2024 [UNIT Y] ANEUP LOIDY NIPT trisomy 13 LOW RISK <1 in 10,000 normal Not Available [facility] [address], [place], [address], 10/08/2024 16:18:49 10/09/19 25 10/08/2024 [UNIT Y] ANEUP LOIDY NIPT trisomy 18 LOW RISK <1 in 10,000 normal Not Available [facility] [address], [place], [address], 10/08/2024 16:18:49 10/09/19 25 10/08/2024 [UNIT Y] ANEUP LOIDY NIPT trisomy 21 LOW RISK <1 in 10,000 normal Not Available [facility] [address], [place], [address], 10/08/2024 16:18:49 10/09/19 25 10/08/2024 [UNIT Y] ANEUP LOIDY NIPT sex MALE normal Not Available [facility] [address], [place], [address], 10/08/2024 16:18:49 10/09/19 25 10/08/2024 [UNIT Y] ANEUP LOIDY NIPT gestation SINGLE TON normal Not Available [facility] [address], [place], [address], 10/08/2024 16:18:49 10/09/19 25 10/08/2024 [UNIT Y] ANEUP LOIDY NIPT for detailed report, see pdf See PDF normal Not Available [facility] [address], [place], [address], 10/08/2024 16:18:49 09/14/19 25 09/13/2024 CBC W/DIF F WBC 8.0 10'3/ uL 3.5-10 .5 Not Available [facility] (Lab) [address], [place], [address], 09/14/2024 10:49:07 09/14/19 25 09/13/2024 CBC W/DIF F RBC 3.92 10'6/ uL (based on docume nted legal sex) 3.80-5 .20 Not Available [facility] (Lab) [address], [place], [address], 09/14/2024 10:49:07 09/14/19 25 09/13/2024 CBC W/DIF F HGB 12.8 g/dL (based on docume nted legal sex) 11.6-1 5.4 Not Available [facility] (Lab) [address], [place], [address], 09/14/2024 10:49:07 09/14/19 25 09/13/2024 CBC W/DIF F HCT 37.0 % (based on docume nted legal sex) 34.0-4 5.0 Not Available [facility] (Lab) [address], [place], [address], 09/14/2024 10:49:07 09/14/19 25 09/13/2024 CBC W/DIF F MCV 94.4 fL 80.0-9 9.0 Not Available [facility] (Lab) [address], [place], [address], 09/14/2024 10:49:07 09/14/19 25 09/13/2024 CBC W/DIF F MCH 32.7 pg 27.0-3 4.0 Not Available [facility] (Lab) [address], [place], [address], 09/14/2024 10:49:07 09/14/19 25 09/13/2024 CBC W/DIF F MCHC 34.6 g/dL 32.0-3 5.5 Not Available [facility] (Lab) [address], [place], [address], 09/14/2024 10:49:07 09/14/19 25 09/13/2024 CBC W/DIF F RDW 13.1 % 11.0-1 5.0 Not Available [facility] (Lab) [address], [place], [address], 09/14/2024 10:49:07 09/14/19 25 09/13/2024 CBC W/DIF F plt 211 10'3/ uL 150-40 0 Not Available [facility] (Lab) [address], [place], [address], 09/14/2024 10:49:07 09/14/19 25 09/13/2024 CBC W/DIF F MPV 11.4 fL 8.8-12 .1 Not Available [facility] (Lab) [address] [facility], [place], [address], 09/14/2024 10:49:07 09/14/19 25 09/13/2024 CBC W/DIF F neutrophils 70.4 % 34.0-7 3.0 Not Available [facility] (Lab) [address] [facility], [place], [address], 09/14/2024 10:49:07 09/14/19 25 09/13/2024 CBC W/DIF F lymphocytes 21.6 % 15.0-5 0.0 Not Available [facility] (Lab) [address] [facility], [place], [address], 09/14/2024 10:49:07 09/14/19 25 09/13/2024 CBC W/DIF F monocytes 5.5 % 1.0-15 .0 Not Available [facility] (Lab) [address] [facility], [place], [address], 09/14/2024 10:49:07 09/14/19 25 09/13/2024 CBC W/DIF F eosinophils 1.5 % 0.0-8. 0 Not Available [facility] (Lab) [address] [facility], [place], [address], 09/14/2024 10:49:07 09/14/19 25 09/13/2024 CBC W/DIF F basophils 0.6 % 0.0-2. 0 Not Available [facility] (Lab) [address] [place], [address], 09/14/2024 10:49:07 09/14/19 25 09/13/2024 CBC W/DIF [...] separ ately if prese nt. Not Available [facility] (Lab) [address] [facility], [place], [address], 09/14/2024 10:49:07 09/14/19 25 09/13/2024 CBC W/DIF F absolute neutrophils 5.6 10'3/ uL 1.5-8. 0 Not Available [facility] (Lab) [address] [facility], [place], [address], 09/14/2024 10:49:07 09/14/19 25 09/13/2024 CBC W/DIF F absolute lymphocytes 1.7 10'3/ uL 1.0-4. 0 Not Available [facility] (Lab) [address] [facility], [place], [address], 09/14/2024 10:49:07 09/14/19 25 09/13/2024 CBC W/DIF F absolute monocytes 0.4 10'3/ uL 0.2-1. 0 Not Available [facility] (Lab) [address] [facility], [place], [address], 09/14/2024 10:49:07 09/14/19 25 09/13/2024 CBC W/DIF F absolute eosinophils 0.1 10'3/ uL 0.0-0. 6 Not Available [facility] (Lab) [address] [facility], [place], [address], 09/14/2024 10:49:07 09/14/19 25 09/13/2024 CBC W/DIF F absolute basophils 0.1 10'3/ uL 0.0-0. 3 Not Available [facility] (Lab) [address] [facility], [place], [address], 09/14/2024 10:49:07 09/14/19 25 09/13/2024 CBC W/DIF F absolute immature granulocytes 0.0 10'3/ uL 0.00-0 .10 Refer ence range s for nonbi nary/ inter sex or unspe cifie d gende r patie nts have not been estab lishe d. Mj monge refer to the michelo wing table for range s estab lishe d for cisge nder patie nts and evalu ate in the clini sinan kalyani xt of the indiv idual patie nt: https ://umang nino book. nm.or g/gen derx Not Available [facility] (Lab) [address] [facility], [place], [address], 09/14/2024 10:49:07 09/14/19 25 09/13/2024 TYPE/ RH/SC REEN ABO/Rh type O POS Not Available [facility] (Lab) [address] [facility], [place], [address], 09/14/2024 10:49:07 09/14/19 25 09/13/2024 TYPE/ RH/SC REEN antibody screen NEG Not Available [facility] (Lab) [address] [facility], [place], [address], 09/14/2024 10:49:07 09/14/19 25 09/13/2024 TYPE/ RH/SC REEN exp date 2024 23:59 Not Available [facility] (Lab) [address] [place], [address], 09/14/2024 10:49:07 09/14/19 25 09/13/2024 HIV 1/2 ANTIG EN/AN TIBOD Y, REFLE X CONFI RMATI ON HIV antigen/anti body Nonrea ctive nonrea ctive HIV-1 antig en and HIV-1 /HIV- 2 antib odies were not detec roland. No labor atory evide nce of HIV infec tion. Not Available [facility] (Lab) [address] [place], [address], 09/14/2024 10:49:08 09/14/19 25 09/13/2024 HEPAT ITIS B SURFA CE ANTIG EN hepatitis B surface antigen Non-re active non-re active This assay was perfo rmed using [employer] ratio n reage nts and test kits. Value s obtai linus with other assay metho ds or kits canno t be used inter ferrera eably . Not Available [facility] (Lab) [address] [facility], [place], [address], 09/14/2024 10:49:08 09/14/19 25 09/13/2024 HEPAT ITIS C ANTIB LIDA SCREE N, REFLE X TO CONFI RMATI ON hepatitis C antibody Non-re active non-re active Antib odies to HCV Not Detec roland, does not exclu de the possi bilit y of expos ure to HCV. Not Available [facility] (Lab) [address] [facility], [place], [address], 09/14/2024 10:49:08 09/14/19 25 09/13/2024 RUBEL LA IGG ANTIB LIDA, QUANT rubella antibodies, IgG Reacti ve reacti ve Not Available [facility] (Lab) [address] [facility], [place], [address], 09/14/2024 10:49:09 09/14/19 25 09/13/2024 RUBEL LA IGG ANTIB LIDA, QUANT rubella antibodies, IgG quant 80.9 IU/mL >=10 Non-r eacti ve (Non- Immun e) <10 IU/mL React [place] (Immu ne) > or = 10 IU/mL Not Available [facility] (Lab) [address] [facility], [place], [address], 09/14/2024 10:49:09 09/14/19 25 09/13/2024 HEMOG LOBIN A1C hemoglobin A1C 5.3 % 4.0-5. 6 The Ameri can Diabe neto Assoc iatio n recom mends that a prima ry goal of thera py veeul d be a HBA1C of < 7% and that physi cians shoul d reeva luate the treat ment regim en in patie nts with HBA1C value s consi stent ly > 8%. <5.7% Sherrell l 5.7 - 6.4% Incre ased risk for diabe neto >=6.5 % Diagn ostic of diabe neto <7.0% Goal of thera py >8.0% Actio n sugge sted Not Available [facility] (Lab) [address] [facility], [place], [address], 09/14/2024 10:49:09 09/14/19 25 09/13/2024 RPR SCREE N, REFLE X TITER /CONF IRMAT ION RPR qualitative Nonrea ctive nonrea ctive Not Available [facility] (Lab) [address] [facility], [place], [address], 09/14/2024 10:49:10 01/02/20 25 01/01/2025 GTT - GESTA LENARD L SCREE N, ACOG OB glucose, 1 hour screen 143 mg/dL 70-135 high Not Available [facility] (Lab) [address] [facility], [place], [address], 01/02/2025 11:30:22 09/14/19 25 09/13/2024 US, obste tric, nucha l trans lucen cy No observ ation record ed. [facility] [address], [place], [address], 09/13/2024 13:55:21 09/14/19 25 09/13/2024 US, obste tric, nucha l trans lucen cy No observ ation record ed. [email or web address] [address], [place], [address], 09/13/2024 22:02:23 11/02/19 25 11/01/2024 US, obste tric, 2nd or 3rd trime ster No observ ation record ed. [email or web address] [place] [address], [place], [address], 11/01/2024 18:26:37 06/05/11/01/2024 US, obste tric, follo w-up No observ ation record ed. JUAN [address], [place], [address], 11/06/2024 14:11:53 01/02/2001/01/2025 US, obste tric, follo w-up No observ ation record ed. [email or web address] [place] [address], [place], [address], 01/01/2025 13:29:10 01/02/20 25 01/01/2025 US, obste tric, follo w-up No observ ation record ed. [email or web address] [address], [place], [address], 01/02/2025 17:47:01 02/06/2002/05/2025 US, obste tric, follo w-up No observ ation record ed. [email or web address] [place] [address], [place], [address], 02/05/2025 12:45:30 02/06/2002/05/2025 US, obste tric, follo w-up No observ ation record ed. [email or web address] [address], [place], [address], 02/07/2025 00:00:31 02/27/2002/26/2025 US, obste tric, bioph ysica l profi le + non-s tress test No observ ation record ed. [email or web address] [place] [address], [place], [address], 02/26/2025 12:30:21 02/27/20 25 02/26/2025 US, obste tric, bioph ysica l profi le + non-s tress test No observ ation record ed. JUAN [address], [place], [address], 02/26/2025 15:11:07 02/27/20 25 02/26/2025 non-s tress test No observ ation record ed. [facility] [address], [place], [address], 02/26/2025 20:09:22 02/27/20 25 non-s tress test No observ ation record ed. [facility] [address], [place], [address], 02/26/2025 20:09:23 Result Notes None recorded. Problems Name Problem SNOMED Code Status Onset Date Resolution Date Notes Provider Name and Address Organization Details Recorded Time Advanced maternal age 821413060 Completed JUSTYNA FENG MD [address], [place], [address], [facility] 4 12:44:22 History of growth retardat ion 9421163421 9108 Completed x3 JUSTYNA FENG MD [address], [place], [address], [facility] 4 12:44:22 Abnormal cervical Papanico laou smear 741789396 Completed unsure of abnormal ity, will try to get records JUSTYNA FENG MD [address], [place], [address], [facility] 4 12:44:22 Placenta circumva llata 5922186 Completed serial growth JUSTYNA FENG MD [address], [place], [address], [facility] 4 12:44:22 growth restrict ion 54292825 Active weekly dopplers /antenat al testing, [facility] 38-39wee in JUSTYNA FENG MD [address], [place], [address], [facility] 4 12:44:22 growth restrict ion 66146558 Completed weekly dopplers /antenat al testing, [facility] 38-39wee in JUSTYNA FENG MD [address], [place], [address], [facility] 4 12:44:22 Pregnanc y 65672831 Completed 202301/12/2024 Wendi Namanoskar wiley, [facility] 5 12:35:15 Pregnanc y 75428517 Active 2024 Wendi Florence null, [facility] 5 12:35:15 Past pregnanc y history of small for gestatio nal age baby 511434887 Active 2024 constitu tionally small children induced multiple times for growth Flip Sommers MD [address], [place], [address], [facility] 5 12:53:01 Environm ental allergy 893178345 Active 2024 given recommen dations Flip Sommers MD [address], [place], [address], [facility] 5 12:03:21 Problem Notes None recorded. Procedures Surgical History Date Name Laterality Status Provider Name and Address Organization Details Recorded Time 4 Date of Last Pap Smear completed [facility] 08/10/2023 14:17:07 8 procedure on gallbladder completed [facility] 08/10/2023 14:07:35 Imaging Results None recorded. [...] Updated DateTime 5 160.02 cm 26.9 kg/m2 46612.0 4 g 160.02 cm 26.9 kg/m2 43045.0 4 g 120/83 mm[Hg] 120/83 mm[Hg] Jenn Knox [facility] 5 12:34:46 Social History Question Answer Notes LastModified by [email or web address] ion Details LastModified Time In The 14 [...] LastModified by Organization Details LastModified Time Brother Hyperchoscar jacobson [email or web address] Not available 2023 14:07:14 Medical [...] ICD10 Code Diagnosis IMO Codes Diagnosis Note [id number] JUSTYNA FENG MD [place] [address],[place] [address] 02/05/2025 11:35:36 02/05/2025 12:03:59 Multigravida of advanced maternal age 765857763 O09.523 Z87.59 Z3A.33 72640291 [id number] JUSTYNA FENG MD [place] [address] [place] [address] 02/05/2025 11:37:19 02/05/2025 13:07:18 Multigravida of advanced maternal age 706751755 O09.523 82936688 Gestation period, 33 weeks 68104211 Z3A.33 0744140 - continue PNV [id number] JUSTYNA FENG MD [place] [address],[place] [address] 02/19/2025 12:35:01 02/19/2025 14:19:26 Gestation period, 36 weeks 78592579 Z3A.36 6134851 - continue PNV Multigravi da of advanced maternal age 333167809 O09.523 36254969 - discussed bASA- will start weekly testing [id number] JUSTYNA FENG MD [place] [address],[place] [address] 02/26/2025 11:34:52 02/26/2025 12:42:18 Poor growth affecting management 066561986 O36.5990 81031784 [id number] JUSTYNA FENG MD [place] [address],[place] [address] 02/26/2025 11:35:01 02/26/2025 12:05:13 care: obstetric risk 615720555 O09.293 O09.523 Z3A.36 0548250 [id number] JUSTYNA FENG MD [place] [address],[place] [address] 02/26/2025 11:35:10 02/26/2025 16:06:53 Multigravida of advanced maternal age 011479197 O09.523 08229260 - discussed bASA- continue testing Gestation period, 36 weeks 17664603 Z3A.36 0614585 - continue PNV- GBS neg Health Concerns Section Related Observation LastModified by Organization Detai ls LastModified Time None Recorded Concern Status LastModified by Organization Details LastModified Time None Recorded Payers Encounter Date Sequence Insurance Name Policy Number Policy Knapp Covered Member ID Knapp Member ID Guarantor Name 02/26/2025 1 [facility] ON OR AFTER 11/27/20 (MEDICAID REPLACEMENT - HMO) Aislinn Schneider [id number] Aislinn Schneider Notes Date Note Type Note Provider Name and Address Organization Details Recorded Time 02/26/2025 text/html Generic HPI TemplateReported by Patient JUSTYNA FENG MD [address], [place], [address], [facility] 02/26/2025 15:54:27 OBGyn Episode Ob Episode Information Episode Created Date Number of Fetuses Patient Bloodtype Patient rh Status Prepregnancy Weight lbs Domestic Partner Domestic Partner Phone Father Name Access Rn Status 09/14/19 25 1 O Positive 140 Francine o OPEN Fetus Data First Name Last Name Admitted to NICU Weight (g) Sex Living Outcome Pediatric Complications Fetus ID Race Codes Race Delivery Type [id number] Problems Problem Notes Problem Name Start Date End Date Resolution Snomed Code Not e Past history of small for gestational age baby 09/13/2024 681263331 constit utionally small childreninduced multiple times for growth Environmental allergy 10/12/2024 796222768 given recommend ations Roshan Calculation Initial Roshan [...] Gestation 0 [email or web address] 09/13/2024 03/20/20 25 0 Pre- Flowsheet Flowsheet Date 09/13/2024 Perdomo Score Blood Edema Fundus Height Fundus Units Glucose Ketones Leukocytes Nitrite Labor Signs Protein Cervic Dilation Cervic Effacement Cervic Station Type Weight in lbs Pre/Post Dialysis Refused Weight 140.941747390357 BP Diastolic BP Location Tested BP Systolic [...] Weight in lbs Pre/Post Dialysis Refused Weight 143.204987288938 BP Diastolic BP Location Tested BP Systolic [...] Type Weight in lbs Pre/Post Dialysis Refused 145.8682513976 BP Diastolic BP Location Tested BP Systolic [...] Weight in lbs Pre/Post Dialysis Refused Weight 145.636103720601 BP Diastolic BP Location Tested BP Systolic [...] Weight in lbs Pre/Post Dialysis Refused Weight 145.421019615273 BP Diastolic BP Location Tested BP Systolic [...] Weight in lbs Pre/Post Dialysis Refused Weight 147.802358614049 BP Diastolic BP Location Tested BP Systolic [...] Type Weight in lbs Pre/Post Dialysis Refused 148.215437207974 BP Diastolic BP Location Tested BP Systolic [...] Type Weight in lbs Pre/Post Dialysis Refused 150.929335962856 BP Diastolic BP Location Tested BP Systolic [...] Type Weight in lbs Pre/Post Dialysis Refused 153.412137915084 BP Diastolic BP Location Tested BP Systolic [...] Weight in lbs Pre/Post Dialysis Refused Weight 152.390940325475 BP Diastolic BP Location Tested BP Systolic [...] Weight in lbs Pre/Post Dialysis Refused Weight 152.372229015585 BP Diastolic BP Location Tested BP Systolic BP Type 83 L arm 120 sitting Fetus Heart Rate Present A Present Fetus Movement A Yes Comments Doing well, no issues. Irreg ular contractions. BPP 10/10. GBS negative. Labor precautions reviewed. RTC 1 [...]
--- OUTSIDE RECORDS SUMMARY | 2025-02-27 21:41 | XMS_ITS | Data Portability ---
Author Organization [facility] Address [address] [place] [address] Assessment No assessment recorded. Plan of Treatment [...] Not available Not available Not available Lab strepto coccus group B, culture , unspeci fied specime n 2024 025 [facility] (Lab), [address], [place], [address], 02/22/2025 18:08:36 Referral None recorde d. Procedures None recorde d. Surgeries None recorde d. Imaging US, obstetr ic, biophys ical profile + non-str ess test 2024 025 [email or web address] [facility], [address], [place], [address], 02/26/2025 12:11:44 non-str ess test 2024 025 [email or web address] [facility], [address], [place], [address], 02/26/2025 12:42:18 US, obstetr ic, follow- up 2024 025 [email or web address] [facility], [address], [place], [address], 02/05/2025 14:40:35 Medication Orders None recorde d. Patient TargetsNo targets recorded. Patient InstructionsNo instructions recorded. Reason for Referral None Reported. Results Created Date Observation Date Name Description Value Unit Range Abnormal Flag Note LastModifiedBy Organization Detail LastModifiedTime 02/06/2002/05/2025 US, maria dolores tric, follo w-up No observ ation record ed. [email or web address] [facility] [address], [place], [address], 02/05/2025 12:45:30 02/06/20 25 02/05/2025 US, maria dolores tric, follo w-up No observ ation record ed. [email or web address] [address], [place], [address], 02/07/2025 00:00:31 02/27/2002/26/2025 US, maria dolores bailey bioph ysica l profi le + non-s tress test No observ ation record ed. [email or web address] [facility] [address], [place], [address], 02/26/2025 12:30:21 02/27/20 25 02/26/2025 US, obste tric, bioph ysica l profi le + non-s tress test No observ ation record ed. JUAN [address], [place], [address], 02/26/2025 15:11:07 02/27/20 25 02/26/2025 non-s tress test No observ ation record ed. [facility] [address], [place], [address], 02/26/2025 20:09:22 02/27/20 25 non-s tress test No observ ation record ed. [facility] [address], [place], [address], 02/26/2025 20:09:23 Result Notes None recorded. Problems Name Problem SNOMED Code Status Onset Date Resolution Date Notes Provider Name and Address Organization Details Recorded Time Advanced maternal age 619114683 Completed JUSTYNA FENG MD [address], [place], [address], [facility] 4 12:44:22 History of growth retardat ion 5214238440 9108 Completed x3 JUSTYNA FENG MD [address], [place], [address], [facility] 4 12:44:22 Abnormal cervical Papanico laou smear 262885433 Completed unsure of abnormal ity, will try to get records JUSTYNA FENG MD [address], [place], [address], [facility] 4 12:44:22 Placenta circumva llata 1681406 Completed serial growth JUSTYNA FENG MD [address], [place], [address], [facility] 4 12:44:22 growth restrict ion 73382217 Active weekly dopplers /antenat al testing, [facility] 38-39wee [place] JUSTYNA FENG MD [address], [place], [address], [facility] 4 12:44:22 growth restrict ion 13437641 Completed weekly dopplers /antenat al testing, [facility] JUSTYNA FENG MD [address], [place], [address], [facility] 4 12:44:22 Pregnanc y 78754729 Completed 202301/12/2024 Wendi wiley, [facility] 5 12:35:15 Pregnanc y 95389074 Active 2024 Wendi wiley, [facility] 5 12:35:15 Past pregnanc y history of small for gestatio nal age baby 300556300 Active 2024 constitu tionally small children induced multiple times for growth Flip Sommers MD [address], [place], [address], [facility] 5 12:53:01 Environm ental allergy 804140587 Active 2024 given recommen dations Flip Sommers MD [address], [place], [address], [facility] 5 12:03:21 Problem Notes None recorded. Procedures Surgical History Date Name Laterality Status Provider Name and Address Organization Details Recorded Time 4 Date of Last Pap Smear [facility] 08/10/2023 14:17:07 8 procedure on gallbladder completed Iman [facility] 08/10/2023 14:07:35 Imaging Results None recorded. [...] Available Not Available Vitals Date Recorded Body weight Body mass index (BMI) Body height Systolic And Diastolic Provider Name and Address Organization Details Last Updated DateTime 02/05/2025 08712.855 5 g 26.6 kg/m2 160.02 cm 119/79 mm[Hg] [facility] 02/05/2025 12:19:12 Date Recorded Body weight Systolic And Diastolic Provider Name and Address Organization Details Last Updated DateTime 02/19/2025 44157.69437 g 119/81 mm[Hg] [facility] 02/19/2025 12:46:30 Date Recorded Body height Body mass index (BMI) Body weight Body height Body mass index (BMI) Body weight Systolic And Diastolic Systolic And Diastolic Provider Name and Address Organization Details Last Updated DateTime 160.02 cm 26.9 kg/m2 25045.0 4 g 160.02 cm 26.9 kg/m2 86664.0 4 g 120/83 mm[Hg] 120/83 mm[Hg] [facility] 12:34:46 Social History Question Answer Notes LastModified [...] ICD10 Code Diagnosis IMO Codes Diagnosis Note [id number] MD Uriel MCDOWELL [address],[place] [address] 08/10/2023 13:37:01 08/17/2023 11:05:38 Advanced maternal age 500802292 O09.522 History of growth retardation 1688541761 9108 Z87.59 Gestation period, 18 weeks 09945077 Z3A.18 [id number] MD Uriel Hunt [address],[place] [address] 08/29/2023 14:14:26 08/29/2023 15:38:04 screening for malformation 175771098 Z36.3 Z3A.20 [id number] MD Uriel MCDOWELL [address],[place] [address] 08/29/2023 14:14:56 08/30/2023 08:26:30 Placenta circumvallata 3468665 O43.119 Advanced m aternal age 380715609 O09.522 History of growth retardation 2709786351 9108 Z87.59 Gestation period, 20 weeks 33943398 Z3A.20 [id number] Flip Sommers MD [facility] [address],[place] [address] 09/26/2023 12:16:38 09/26/2023 14:00:18 Placenta circumvallata 8092707 O43.112 O09.522 Z3A.24 [id number] JUSTYNA FENG MD [facility] [address],[place] [address] 09/26/2023 12:16:58 09/26/2023 13:08:19 Placenta circumvallata 0711498 O43.119 Advanced m aternal age 941521572 O09.522 History of growth retardation 9349827843 9108 Z87.59 Gestation period, 24 weeks 823557944 Z3A.24 [id number] MD Uriel MCDOWELL [address],[place] [address] 10/25/2023 09:51:29 10/25/2023 12:04:42 Advanced maternal age 376238812 O09.523 Placenta circumvallata 9534001 O43.119 History of growth retardation 2756383925 9108 Z87.59 Gestation period, 28 weeks 46030300 Z3A.28 [id number] JUSTYNA FENG MD [facility] [address],[place] [address] 11/09/2023 11:10:10 11/09/2023 11:51:14 growth restriction 78443533 O36.5999 Placenta circumvallata 4983937 O43.119 Advanced m aternal age 078895780 O09.523 Gestation period, 30 weeks 92296934 Z3A.30 Acid reflux 556374459 K2 1.9 Constipation 17947384 K5 9.00 [id number] Flip Sommers MD [facility] [address],[place] [address] 11/22/2023 11:07:55 11/22/2023 11:49:20 Past history of small for gestational age baby 516603694 Z87.59 Z3A.32 [id number] JUSTYNA FENG MD [facility] [address],[place] [address] 11/22/2023 11:08:27 11/22/2023 12:16:47 Hemorrhoids 54700167 K64.9 Gastroesop hageal reflux disease 292251684 K21.9 Placenta circumvallata 5548311 O43.119 History of growth retardation 9907517779 9108 Z87.59 Advanced m aternal age 090561993 O09.523 [id number] Flip Sommers MD [facility] [address],[place] [address] 12/21/2023 11:25:24 12/21/2023 11:57:44 Placenta circumvallata 1641104 O43.113 O36.5930 O09.523 Z3A.36 [id number] JUSTYNA FENG MD [facility] [address],[place] [address] 12/21/2023 11:25:42 12/21/2023 12:46:38 growth restriction 38288100 O36.5999 Discussed diagnosis of FGR, recommenda tion for weekly testing and UADs as well as induction between 38-39 weeks. Placenta circumvallata 2227038 O43.119 Advanced m aternal age 292228261 O09.523 Gestation period, 36 weeks 12490018 Z3A.36 - continue PNV [id number] Flip Sommers MD [facility] [address],[place] [address] 12/27/2023 14:15:02 12/27/2023 15:29:08 Small for gestational age fetus 600485162 O36.5930 Z3A.37 298358 Flip Sommers MD [facility] [address],[place] [address] 12/27/2023 15:16:43 12/27/2023 15:50:46 growth restriction 91096662 O36.5999 [id number] JUSTYNA FENG MD [facility] [address],[place] [address] 12/27/2023 15:17:05 12/27/2023 16:25:04 growth restriction 67046838 O36.5999 Discussed diagnosis of FGR, recommenda tion for weekly testing and UADs as well as induction between 38-39 weeks. Patient to call to schedule induction Placenta circumvallata 2070180 O43.119 Advanced m aternal age 536115174 O09.523 Gestation period, 37 weeks 19108269 Z3A.37 - continue PNV [id number] Flip Sommers MD [facility] [address],[place] [address] 01/03/2024 14:33:41 01/03/2024 15:53:02 Small for gestational age fetus 248467941 O36.5930 O09.523 Z3A.38 [id number] JUSTYNA FENG MD [facility] [address],[place] [address] 01/03/2024 14:33:53 01/03/2024 15:52:35 growth restriction 83415857 O36.5999 Discussed diagnosis of FGR, recommenda tion for weekly testing and UADs as well as induction between 38-39 weeks. Patient to call to schedule induction [id number] JUSTYNA FENG MD [facility] [address],[place] [address] 01/03/2024 14:34:06 01/09/2024 11:42:32 growth restriction 55454017 O36.5999 - recommend delivery prior to 39w0d, patient desires to wait until 39w2d- discussed low SACHA, recommend repeat SACHA if undelivere d by 01/05- risks of delayed delivery including increased risk of stillbirth discussed with patient who voices understand ing Placenta circumvallata 0762805 O43.119 Advanced m aternal age 020454277 O09.523 - bASA Gestation period, 38 weeks 08360831 Z3A.38 - continue PNV [id number] JUSTYNA FENG MD [facility] [address],[place] [address] 02/21/2024 11:49:14 02/21/2024 12:32:22 care 157122307 Z39.2 S/p 4 weeks ago here today [...] squamous intraepithelial lesion on cervical Papanicolaou smear 1426873701 9105 R87.612 - hx of LSIL pap smear- will repeat at 6 month WWE [id number] Flip Sommers MD [facility] [address],[place] [address] 08/07/2024 12:26:36 08/07/2024 12:55:47 [id number] JUSTYNA FENG MD [facility] [address],[place] [address] 08/14/2024 13:24:47 08/14/2024 14:44:42 test positive 113671835 Z32.01 1. Exam today within normal limits.2. Ultrasound today confirms GA and viability. EDC . GC/Jayne a testing done: will f/u as indicated. 4. ACOG guidelines and plan of care for reviewed with patient. All questions answered.5 . Return to office at 12 weeks for new OB visit6. Will need new OB labs at next visit.7. Genetic screening: declines [id number] MD Uriel Hunt [address],[place] [address] 09/13/2024 10:58:35 09/13/2024 11:33:58 screening 928000354 Z36.82 Z3A.13 156505 [id number] MD Uriel Hunt [address],[place] [address] 09/13/2024 10:59:32 09/13/2024 12:55:22 care status 532268686 Z34.82 72350372 [id number] MD Uriel Hunt [address],[place] [address] 10/12/2024 11:33:10 10/12/2024 12:05:39 care status 552847254 Z34.82 32237802 [id number] MD Uriel Hunt [address],[place] [address] 11/01/2024 14:27:06 11/01/2024 15:41:02 screening for malformation 223269375 Z36.3 Z3A.20 6093960622 [id number] MD Uriel Hunt [address],[place] [address] 11/01/2024 14:27:28 11/04/2024 23:44:56 [id number] MD Uriel Hunt [address] [place] [address] 11/01/2024 17:19:26 11/05/2024 08:59:36 care status 519671439 Z34.83 61237899 [id number] JUSTYNA FEGN MD [facility] [address],[place] [address] 12/03/2024 12:02:45 12/03/2024 12:29:41 Past history of small for gestational age baby 678075992 Z87.59 0276841325 - EFW 22% at anatomy US- repeat at 28 weeks Gestation period, 24 weeks 137408176 Z3A.24 6909467 - continue pNV [id number] MD [place]ju [place] [address],[place] [address] 01/01/2025 09:19:13 01/01/2025 10:29:15 care: obstetric risk 109155298 O09.293 O09.893 Z3A.28 6440962 [id number] JUSTYNA FENG MD [facility] [address],[place] [address] 01/01/2025 09:19:25 01/01/2025 10:59:59 Past history of small for gestational age baby 286543886 Z87.59 4779543859 - EFW 22% at anatomy US, 46% at 28 weeks- repeat at 32 weeks Gestation period, 28 weeks 28591127 Z3A.28 8001890 [id number] JUSTYNA FENG MD [facility] [address],[place] [address] 01/16/2025 11:09:34 01/16/2025 11:43:38 Past history of small for gestational age baby 532354932 Z87.59 4275157393 - EFW 22% at anatomy US, 46% at 28 weeks- repeat at 32 weeks Gestation period, 31 weeks 48416836 Z3A.31 7788718 - continue PNV Impaired g lucose tolerance in 495470071 O99.810 072668 - 1h GCT 143, patient declined further testing [id number] MD Uriel MCDOWELL [address] [place] [address] 02/05/2025 11:35:36 02/05/2025 12:03:59 Multigravida of advanced maternal age 527785292 O09.523 Z87.59 Z3A.33 55788457 [id number] MD [place]ju [place] [address] [address] 02/05/2025 11:37:19 02/05/2025 13:07:18 Multigravida of advanced maternal age 339623055 O09.523 75765788 Gestation period, 33 weeks 70954709 Z3A.33 2553720 - continue PNV [id number] MD Uriel MCDOWELL [address],[place] [address] 02/19/2025 12:35:01 02/19/2025 14:19:26 Gestation period, 36 weeks 95481114 Z3A.36 7007243 - continue PNV Multigravi da of advanced maternal age 465561663 O09.523 19639854 - discussed bASA- will start weekly testing [id number] MD Uriel MCDOWELL [address],[place] [address] 02/26/2025 11:34:52 02/26/2025 12:42:18 Poor growth affecting management 410981582 O36.5990 80766949 [id number] MD Uriel MCDOWELL [address],[place] [address] 02/26/2025 11:35:01 02/26/2025 12:05:13 care: obstetric risk 537786183 O09.293 O09.523 Z3A.36 5195057 [id number] MD Uriel MCDOWELL [address],[place] [address] 02/26/2025 11:35:10 02/26/2025 16:06:53 Multigravida of advanced maternal age 786539558 O09.523 66750186 - discussed bASA- continue testing Gestation period, 36 weeks 67414857 Z3A.36 4990712 - continue PNV- GBS neg Health Concerns Section Related Observation LastModified by Organization Detai ls LastModified Time None Recorded Concern Status LastModified by Organization Details LastModified Time None Recorded Advance Directives Directive None Recorded Payers Insurance Date Sequence Insurance Name Policy Number Policy Knapp Covered Member ID Knapp Member ID Guarantor Name 02/27/2025 1 [facility] - DOS ON OR AFTER 20 (MEDICAID REPLACEMENT - HMO) Aislinn Schneider [id number] Aislinn Schneider 10/01/2023 2 [facility] - DOS ON OR AFTER 20 (MEDICAID REPLACEMENT - HMO) Aislinn Schneider [id number] Aislinn Schneider 10/25/2023 1 [place] [employer] Aislinn Schneider [id number] Aislinn Schneider Notes Date Note Type Note Provider Name and Address Organization Details Recorded Time 02/05/2025 text/html Generic HPI TemplateReported by Patient JUSTYNA FENG MD [address], [place], [address], [facility] 02/05/2025 12:44:39 02/19/2025 text/html Generic HPI TemplateReported by Patient JUSTYNA FENG MD [address], [place], [address], [facility] 02/19/2025 14:17:45 02/26/2025 text/html Generic HPI TemplateReported by Patient JUSTYNA FENG MD [address], [place], [address], [facility] 02/26/2025 15:54:27 OBGyn Episode Ob Episode Information Episode Created Date Number of Fetuses Patient Bloodtype Patient rh Status Prepregnancy Weight lbs Domestic Partner Domestic Partner Phone Father Name Air Conditioning Unit Tester Status 08/10/19 24 1 CLOSED Fetus Data First Name Last Name Admitted to NICU Weight (g) Sex Living Outcome Pediatric Complications Fetus ID Race Codes Race Delivery Type 2976.47 0704 Full Term 36077 Vaginal Delivery Roshan Calculation Initial Roshan Date [...] Domestic Partner Domestic Partner Phone Father Name Air Conditioning Unit Tester Status 08/12/19 24 1 138 CLOSED Fetus Data First Name Last Name Admitted to NICU Weight (g) Sex Living Outcome Pediatric Complications Fetus ID Race Codes Race Delivery Type 2126.21 25 F true Full Term 13877 Vaginal Delivery Problems Problem Notes Problem Name Start Date End Date Resolution Snomed Code Not e Placenta circumvallata 6378967 serial growth Advanced maternal age 529973947 History of growth retardation 36924714560023 x3 Abnormal cervical Papanicolaou smear 077135675 unsure of abnormality, will try to get records growth restriction 58992361 weekly dopplers/antenat al testing, [place] 38-39weeks Roshan Calculation Initial Roshan Date Initial Exam Date Initial Exam Provider Initial Ultrasound Date Last Menstrual Period Date Ultra Sound Weeks Gestation 01/14/2024 08/12/2023 04/09/2023 0 Eighteen To Twenty Week Roshan Update Ultra Sound Date Fundal Height At Umbil Quickening Date Ultra Sound Latest Weeks Gestation Final Roshan Confirmed By Final Roshan Confirmed Date Final Rosahn Date Ultra Sound Latest Days Gestation 0 [email or web address] 08/17/2023 01/14/20 24 0 Pre-lynette Flowsheet Flowsheet Date 08/10/2023 Perdomo Score Blood Edema Fundus Height Fundus Units Glucose Ketones Leukocytes Nitrite Labor Signs Protein Cervic Dilation Cervic Effacement Cervic Station 18 Type Weight in lbs Pre/Post Dialysis Refused Weight 138.921934336955 BP Diastolic BP Location Tested BP Systolic BP Type 64 99 Fetus Heart Rate Present A 140 Fetus Movement A Yes Comments Patient presents to [facility] care. Patient reports headaches, improves with [...] Weight in lbs Pre/Post Dialysis Refused Weight 136.869129312641 BP Diastolic BP Location Tested BP Systolic [...] Weight in lbs Pre/Post Dialysis Refused Weight 139.637517414963 BP Diastolic BP Location Tested BP Systolic [...] Weight in lbs Pre/Post Dialysis Refused Weight 144.038813038457 BP Diastolic BP Location Tested BP Systolic [...] Weight in lbs Pre/Post Dialysis Refused Weight 143.76101877405 BP Diastolic BP Location Tested BP Systolic [...] Weight in lbs Pre/Post Dialysis Refused Weight 144.373880333273 BP Diastolic BP Location Tested BP Systolic [...] Weight in lbs Pre/Post Dialysis Refused Weight 146.308842436510 BP Diastolic BP Location Tested BP Systolic [...] Weight in lbs Pre/Post Dialysis Refused Weight 147.012858461111 BP Diastolic BP Location Tested BP Systolic [...] Estim ated Date of Delivery true Thalassemia (Namibian, Wolof, Mediterranean, Or Background): MCV < 80 false Neural Tube Defect (Meningomyelocele, Spina Bifi da, Or Anencephaly) false Congenital Heart Defect false Down Syndrome false Jadon-Sachs (eg, Evangelical, Cajun, Slovak-Crestview) f alse Sachin Disease false Sickle Cell Disease Or Trait () false Hemophilia Or Other Blood Disorders false Muscular Dystrophy false Cystic Fibrosis false Harleen's Chorea false Intellectual Disability/Autism false If Yes, [...] 4 Induce d Regional-Ep idural 38.6 false Feng Abnormal cervical Papanicol aou smear,Adv anced maternal age ,F etal growth restricti on,Histor y of growth retardati on,Placen ta circumval ivelisse; IUGR Discharge Information Feeding Method Contraceptive Method Maternal HG B and HCT Levels Ob Episode Information Episode Created Date Number of Fetuses Patient Bloodtype Patient rh Status Prepregnancy Weight lbs Domestic Partner Domestic Partner Phone Father Name Air Conditioning Unit Tester Status 10/25/19 24 1 CLOSED Fetus Data First Name Last Name Admitted to NICU Weight (g) Sex Living Outcome Pediatric Complications Fetus ID Race Codes Race Delivery Type , Spontane ous 69074 Roshan Calculation Initial Roshan Date Initial Exam [...] Domestic Partner Domestic Partner Phone Father Name Air Conditioning Unit Tester Status 08/10/19 24 1 CLOSED Fetus Data First Name Last Name Admitted to NICU Weight (g) Sex Living Outcome Pediatric Complications Fetus ID Race Codes Race Delivery Type Full Term 11586 Vaginal Delivery Roshan Calculation Initial Roshan Date [...] Domestic Partner Domestic Partner Phone Father Name Air Conditioning Unit Tester Status 09/14/19 25 1 O Positive 140 Francine o OPEN Fetus Data First Name Last Name Admitted to NICU Weight (g) Sex Living Outcome Pediatric Complications Fetus ID Race Codes Race Delivery Type 43893 Problems Problem Notes Problem Name Start Date End Date Resolution Snomed Code Not e Past history of small for gestational age baby 09/13/2024 076157549 constit utionally small childreninduced multiple times for growth Environmental allergy 10/12/2024 683291457 given recommend ations Roshan Calculation Initial Roshan [...] Weight in lbs Pre/Post Dialysis Refused Weight 140.028039893430 BP Diastolic BP Location Tested BP Systolic [...] Weight in lbs Pre/Post Dialysis Refused Weight 143.201903086591 BP Diastolic BP Location Tested BP Systolic [...] Type Weight in lbs Pre/Post Dialysis Refused 145.5183817290 BP Diastolic BP Location Tested BP Systolic [...] Weight in lbs Pre/Post Dialysis Refused Weight 145.985596597197 BP Diastolic BP Location Tested BP Systolic [...] Weight in lbs Pre/Post Dialysis Refused Weight 145.451060765163 BP Diastolic BP Location Tested BP Systolic [...] Weight in lbs Pre/Post Dialysis Refused Weight 147.084451013884 BP Diastolic BP Location Tested BP Systolic [...] Type Weight in lbs Pre/Post Dialysis Refused 148.202329518229 BP Diastolic BP Location Tested BP Systolic [...] Type Weight in lbs Pre/Post Dialysis Refused 150.678669558234 BP Diastolic BP Location Tested BP Systolic [...] Type Weight in lbs Pre/Post Dialysis Refused 153.463810919072 BP Diastolic BP Location Tested BP Systolic [...] Weight in lbs Pre/Post Dialysis Refused Weight 152.601015201376 BP Diastolic BP Location Tested BP Systolic [...] Weight in lbs Pre/Post Dialysis Refused Weight 152.412825654741 BP Diastolic BP Location Tested BP Systolic [...] Domestic Partner Domestic Partner Phone Father Name Air Conditioning Unit Tester Status 08/10/19 24 1 CLOSED Fetus Data First Name Last Name Admitted to NICU Weight (g) Sex Living Outcome Pediatric Complications Fetus ID Race Codes Race Delivery Type Full Term 24442 Vaginal Delivery Roshan Calculation Initial Roshan Date [...] Domestic Partner Domestic Partner Phone Father Name Air Conditioning Unit Tester Status 08/10/19 24 1 CLOSED Fetus Data First Name Last Name Admitted to NICU Weight (g) Sex Living Outcome Pediatric Complications Fetus ID Race Codes Race Delivery Type 2721.55 2 Full Term 84757 Vaginal Delivery Roshan Calculation Initial Roshan Date [...]
--- OUTSIDE RECORDS SUMMARY | 2025-02-27 21:41 | XMS_ITS | Clinical Summary ---
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 Role Phone Unavailable Primary Care Provider Unavailabl e Social History Tobacco Use Types Packs/Day Years Used Date Smoking Tobacco: Never Assessed Comments Unknown Sex and Gender Information Value Date Recorded Sex Assigned at Not on file Legal Sex Female 8:56 AM [employer] Gender Identity Not on file Sexual Orientation Not on file Plan of Treatment Health Maintenance Due Date Last Done Comments Hepatitis C Virus (HCV) Screening 1986 Hepatitis B Immunization (1 of 3 - 19+ 3-dose series) 2005 Pap Smear 09/10/2007 Human Papillomavirus (HPV) Immunization (1 - 3-dose SCDM series) 2013 Cervical Cancer Screening (CCS) 2016 HPV/Cotest 2016 Influenza Immunization (#1) 01/28/2025/0 11/2018, 07/05/2016, 03/29/2015, Additional history exists SARS-COV-2 Immunization ( season) 2025 Respiratory Syncytial Virus (RSV) Immunization (Adult) (1 [...]
[2025-02-27 22:01] VITALS: BP 118/64; PULSE 61
[2025-02-27 22:17] VITALS: BP 131/77; PULSE 55
[2025-02-27 22:36] VITALS: BMI 26.5
--- NOTE | 2025-02-27 22:38 | OBADM ---
This patient, Aislinn Alva, admitted to the OB room Labor/Delivery/Recovery 105 for observation. Patient/family oriented to hospital policies and general routines including ID bracelet, bed and alarms, visiting hours, pain management, procedures, bathroom and other care routines, personal items, smoking policy, room service/diet, and visiting hours. Patient/Family are encouraged to report perceived risks to care and to ask questions if they do not understand what they are told or what they should do.
[2025-02-28 00:10] LABS: Add Urine Microscopic? YES; Appearance Urine Clear (Clear); Glucose Urine UA Negative (Negative); Leukocyte Esterase Ur Trace LEU/UL (Negative); Nitrate Urine Negative (Negative); Non Pathogenic Casts 0-2; Specific Grav Ur 1.006 (1.001-1.035)
[2025-02-28 06:12] VITALS: BP 106/79; PULSE 65; PULSE 69; TEMP 36.4; O2SAT 98
[2025-02-28 06:17] VITALS: PULSE 74; O2SAT 97
[2025-02-28 06:22] VITALS: PULSE 47; O2SAT 99
--- NOTE | 2025-02-28 06:24 | WPDANESEPP ---
Anes - Eval Pre Procedure Procedure: Labor epidural Date/Time: 02/28/25 06:24 Surgeon: Andrés Preop Diagnosis: Abdominal pain with contractions Pre Op Diagnosis: Bleeding Patient Data Age: 39 Gender: F Height: 1.6 m Weight: 68 kg Last Vital Signs Pulse 69 02/28/25 06:12 BP 106/79 02/28/25 06:12 Pulse Ox 99 02/28/25 06:22 O2 Del Method Room Air 02/27/25 22:36 Allergies Allergy/AdvReac Type Severity Reaction Status Date / Time No Known Allergies Allergy Verified 12/26/23 15:24 Home Medications ?Medication ?Instructions ?Recorded ?Confirmed ?Type vits no.126-ferrous fum 1 tablet PO DAILY 12/26/23 12/26/23 History 28 mg iron-folic acid 800 mcg tablet (Classic ) Laboratory Tests 02/27/25 23:43 Urine Color Yellow (Yellow) Urine Appearance Clear (Clear) Urine pH 7.0 (5.0-9.0) Ur Specific [place] 1.006 (1.001-1.035) Urine Protein Negative mg/dL (Negative) Urine Glucose (UA) Negative mg/dL (Negative) Urine Ketones Negative mg/dL (Negative) Ur Blood (Man) 3+ H (Negative) Urine Nitrate Negative (Negative) Urine Bilirubin Negative (Negative) Urine Urobilinogen 0.2 mg/dL (<2.0) Leukocyte Esterase Rfl Trace H DAYO/UL (Negative) Urine RBC 0-2 /hpf (0-2) Urine WBC 0-5 /hpf (0-3) Ur Squamous Epith Cells Occasional /hpf (Few) Urine Bacteria None seen /hpf Urine Casts 0-2 : gestational age HCG: positive Patient hx anesthesia problems: none Family hx anesthesia problems: none Results Review: All pre-operative results and documents have been reviewed as part of the pre-operative evaluation. [facility] Past Medical History Medical History Overweight (BMI 25.0-29.9) and not yet delivered No significant past medical history Surgical History Surgical History No significant past surgical history Family History Family History Other No pertinent family history Social History Social History Smoking status: Never smoker Substance use: never Do You Feel Safe in your Home?: Yes Lack of Transportation: No Lack of Food: Never True Current Housing: I Have Housing Concerned About Future Housing: No Difficulty Paying Gas/Electric Bills: No Difficulty Paying for Meds: No Currently Unemployed: No Education: High School Diploma/GED Difficulty w/ Childcare or Family Care: No Spiritual care concerns: No Exam Day of Procedure 02/28/25 06:24 Patient weight: overweight
[2025-02-28 06:27] VITALS: PULSE 49; O2SAT 97
[2025-02-28 06:32] VITALS: PULSE 57; O2SAT 98
[2025-02-28 09:03] VITALS: BP 101/71; PULSE 68; TEMP 36.3; O2SAT 98
--- NOTE | 2025-03-27 21:51 | P.PNOB_ITS ---
OB - Triage/Final Diagnosis Visit Information Comments/Additional reasons for admission: I have assessed the risk for this patient, Aislinn Alva, and determined that she would benefit from observation care. Evaluation Laboratory results: Laboratory Tests 02/27/25 23:43 Urine Color Yellow Urine Appearance Clear Urine pH 7.0 Ur Specific [place] 1.006 Urine Protein Negative Urine Glucose (UA) Negative Urine Ketones Negative Ur Blood (Man) 3+ H Urine Nitrate Negative Urine Bilirubin Negative Urine Urobilinogen 0.2 Leukocyte Esterase Rfl Trace H Urine RBC 0-2 Urine WBC 0-5 Ur Squamous Epith Cells Occasional Urine Bacteria None seen Urine Casts 0-2 Final Diagnosis (1) Third trimester bleeding: Code(s): O46.93 - Antepartum hemorrhage, unspecified, third trimester Status: Acute
== END 2025-02-28 09:30 | disposition home or self-care (01) ==
PROVIDERS: Advanced Practice Midwife; Admitting Provider Obstetrics & Gynecology; PCP Physician Assistant; Visit Provider Obstetrics & Gynecology
DX: O46.93 Antepartum hemorrhage, unspecified, third trimester (principal); Z3A.37 37 weeks gestation of pregnancy
CPT/HCPCS: 76819; 81001; G0378; G0379

== ENCOUNTER 2025-03-05 04:22 | Inpatient (IN) | payer OTHER, SELFPAY ==
[2025-03-05] VITALS (109 sets, daily range): BP systolic 99–179; BP diastolic 58–137; PULSE 32–102; RESP 16–20; TEMP 36.2–37.3; O2SAT 87–100; BMI 29.9
--- NOTE | 2025-03-05 04:39 | LDADM ---
This patient, Aislinn Alva, was admitted to Labor/Delivery/Recovery 104 on 03/05/25 at 04:22. Plans for labor, pain management and were discussed with patient. Patient/family oriented to hospital policies and general routines including ID bracelet, bed and alarms, visiting hours, pain management, procedures, bathroom and other care routines, personal items, smoking policy, room service/diet and guest tray routines, security routines, and visiting hours. Patient/Family are encouraged to report perceived risks to care and to ask questions if they do not understand what they are told or what they should do. See OBIX for further documentation.
[2025-03-05] MEDS: LACTATED RINGERS 1,000 ML 125 ML IV CONT (04:50)
[2025-03-05 05:00] LABS: Hematocrit 39.5 % (37.0-47.0); Hemoglobin 13.5 g/dL (12.0-15.0); Immature Granulocyte Percent A 2.5 % (0-0.5); Immature Platelet Fraction Pct 20.7 % (0.9-11.2); Lymphocytes Absolute Auto 2.65 K/mm3 (0.9-3.2); Mean Corpuscular HGB Conc 34.2 g/dl (32-36); Mean Corpuscular Hemoglobin 32.4 pg (26-34); Mean Corpuscular Volume 94.7 fl (80-100); Nucleated Red Blood Cells Absolute Auto 0.030 K/mm3 (0.0-0.012); Nucleated Red Blood Cells Perc 0.3 % (0.0-0.2); Platelet Count Result 92 k/mm3 (150-375); Red Blood Count 4.17 M/mm3 (4.2-5.4); White Blood Count 9.6 K/mm3 (4.5-10.0)
--- NOTE | 2025-03-05 05:10 | WPDANESEPP ---
Anes - Eval Pre Procedure Procedure: Labor Epidural Date/Time: 03/05/25 05:10 Preop Diagnosis: Labor Pain Pre Op Diagnosis: Contractions Patient Data Age: 39 Gender: F Height: 1.65 m Weight: Last Vital Signs Temp 36.9 C 03/05/25 04:55 Pulse Ox 99 03/05/25 04:33 O2 Del Method Room Air 03/05/25 04:39 Allergies Allergy/AdvReac Type Severity Reaction Status Date / Time No Known Allergies Allergy Verified 03/05/25 04:37 Home Medications ?Medication ?Instructions ?Recorded ?Confirmed ?Type vits no.126-ferrous fum 1 tablet PO DAILY 12/26/23 03/05/25 History 28 mg iron-folic acid 800 mcg tablet (Classic ) Laboratory Tests 03/05/25 04:42 WBC Pending RBC Pending Hgb Pending Hct Pending MCV Pending MCH Pending MCHC Pending RDW Pending Plt Count Pending MPV Pending Immature Gran % (Auto) Pending Neut % (Auto) Pending Lymph % (Auto) Pending [place] % (Auto) Pending Eos % (Auto) Pending Baso % (Auto) Pending Lymph # (Auto) Pending [place] # (Auto) Pending Eos # (Auto) Pending Baso # (Auto) Pending Abs Immat Gran (auto) Pending Absolute Neuts (auto) Pending Absolute Nucleated RBC Pending Nucleated RBC % Pending Patient hx anesthesia problems: none Family hx anesthesia problems: none Results Review: All pre-operative results and documents have been reviewed as part of the pre-operative evaluation. [facility] Past Medical History Medical History Overweight (BMI 25.0-29.9) and not yet delivered No significant past medical history Surgical History Surgical History No significant past surgical history Family History Family History Other No pertinent family history Social History Social History Smoking status: Never smoker Substance use: never Do You Feel Safe in your Home?: Yes Lack of Transportation: No Lack of Food: Never True Current Housing: Decline to Answer Concerned About Future Housing: No Difficulty Paying Gas/Electric Bills: No Difficulty Paying for Meds: No Currently Unemployed: No Education: Grade School Difficulty w/ Childcare or Family Care: No Spiritual care concerns: No Exam Day of Procedure 03/05/25 05:10 Patient weight: normal Heart: regular rate and rhythm Lungs: normal air movement Airway: Mallampati scale class II Neurological: alert and oriented
[2025-03-05 05:35] LABS: Syphilis IgG/IgM Antibody Non-Reactive (Nonreactive)
--- NOTE | 2025-03-05 06:24 | WPDHPUPDATE1 ---
History and Physical Update Update Date/Time: 03/05/25 06:24 39-year-old grand multipara presented labor. 7 cm dilated. Expectant management. Artificial rupture membranes was performed. Reassuring status. History and Physical has been reviewed, including an updated exam of the patient. There are NO changes in the patient's condition. Risks, benefits, and alternatives have been discussed and questions answered. Patient agrees to proceed with procedure.
[2025-03-05] MEDS: METHYLERGONOVINE MALEATE 0.2 MG/ML VIAL IM (07:24)
--- NOTE | 2025-03-05 07:31 | PM.OBPRVD ---
OB - Vaginal Delivery Note Procedure Delivery date: 03/05/25 Events: Other (AMA) Delivery augmentation: Rupture of Membranes Delivery monitor: External FHT and External Uterine Route of delivery: Episiotomy description: None Laceration Description: None Specimen: No Quantitative Blood Loss (ml): 150 Anesthesia type: Epidural Disposition: Floor Complications: No immediate complications Narrative: See H&P and notes for details on patient's admission and labor. She progressed to complete cervical dilation and at the appropriate time began pushing. With adequate expulsive efforts by the mother, the baby's head was delivered without difficulty. Nuchal cord was not present. The baby's left shoulder was anterior and delivered under the pubic symphysis without difficulty. The posterior shoulder and the rest of the baby delivered without difficulty. The umbilical cord was doubly clamped and cut after 60 seconds of delayed cord clamping. Care of the was then assumed by the nursing staff. Baby Date of : 03/05/25 Time of : 07:12 Gestational Age by Date: 38 Infant gender: Male presentation: vertex position: Right Occiput Anterior Placenta delivery description: Manual Removal (retained cotyledon after delivery of the remainder of the placenta) Cord Vessel Description: 3 Vessels and Delayed Cord Clamping
[2025-03-05] MEDS: OXYTOCIN 30 UNITS/NS 500 ML 30 UNITS/500 ML BAG 125 UNITS IV CONT (07:49)
[2025-03-05] MEDS: ceFAZolin 2 GM in SODIUM CHLORIDE 0.9% IV 50 ML 100 ML IVPB (07:57)
[2025-03-05] MEDS: ACETAMINOPHEN 500 MG TABLET 1000 MG PO (08:05)
[2025-03-05] MEDS: MAGNESIUM SULF 4 GM/WATER100ML 4 GM/100 ML BAG IVPB (09:05)
[2025-03-05 09:19] LABS: Hematocrit 41.1 % (37.0-47.0); Hemoglobin 14.1 g/dL (12.0-15.0); Immature Platelet Fraction Pct 20.1 % (0.9-11.2); Mean Corpuscular HGB Conc 34.3 g/dl (32-36); Mean Corpuscular Hemoglobin 32.6 pg (26-34); Mean Corpuscular Volume 95.1 fl (80-100); Platelet Count Result 70 k/mm3 (150-375); Red Blood Count 4.32 M/mm3 (4.2-5.4); White Blood Count 13.0 K/mm3 (4.5-10.0)
--- NOTE | 2025-03-05 09:27 | PM.OBPNVD ---
OB - PN: Subj Subjective Date/time seen: 03/05/25 09:27 Interval history: Patient meets criteria for preeclampsia with severe features by blood pressures. She also reports headache since delivery. She denies vision changes, chest pain, dyspnea, or RUQ pain. Her was previously uncomplicated. Blood pressures responded to hydral 10mg IV. MgSO4 was started for seizure prophylaxis. Her headache improved with her blood pressure improvement. Repeat labs are significant for plt 70. Her bleeding has been moderate however has had some increased bleeding, was given TXA. Bleeding has continued to be moderate. Urinary catheter placed due to fatigue and unsteadiness with MgSO4. BP has been normotensive since starting MgSO4. Epidural catheter remains in place due to thrombocytopenia. OB - PN: Obj Data Labs 03/05/25 09:12 03/05/25 09:12 Labs: Laboratory Results - last 24 hr 03/05/25 03/05/25 04:42 09:12 WBC 9.6 13.0 H RBC 4.17 L 4.32 Hgb 13.5 14.1 Hct 39.5 41.1 MCV 94.7 95.1 MCH 32.4 32.6 MCHC 34.2 34.3 RDW 13.6 13.7 Plt Count 92 L 70 L MPV 13.0 H 13.3 H Immature Gran % (Auto) 2.5 H Neut % (Auto) 60.8 Lymph % (Auto) 27.5 [place] % (Auto) 8.0 Eos % (Auto) 0.5 Baso % (Auto) 0.7 Lymph # (Auto) 2.65 [place] # (Auto) 0.8 H Eos # (Auto) 0.1 Baso # (Auto) 0.1 Abs Immat Gran (auto) 0.24 H Absolute Neuts (auto) 5.9 Absolute Nucleated RBC 0.030 H Nucleated RBC % 0.3 H % Immature Plt Fraction 20.7 H 20.1 H Syphilis IgG/IgM Ab Non-reactive Blood Type O Positive Antibody Screen Negative OB - PN A/P Assessment and Plan (1) Pre-eclampsia, severe, delivered: Code(s): O14.14 - Severe pre-eclampsia complicating childbirth Status: Acute Assessment and Plan: - severe by: BP and platelets - asymptomatic, headache resolved - acute antihypertensives: labetalol 20mg IV, hydral 10mg IV - maintenance antihypertensives: none - labs otherwise unremarkable - repeat labs at 1200 - MgSO4 for seizure prophylaxis - urinary catheter in to monitor output (2) History of hemorrhage: Code(s): Z87.59 - Personal history of other complications of , childbirth and the puerperium Status: Acute Assessment and Plan: - s/p methergine and TXA at delivery - bleeding mild to moderate - repeat CBC at nood Time Spent With Patient Time: Total time spent is greater than 50% in coordination of care (as documented) at patient's floor/unit and/or counseling patient: Review of Systems Review of Systems: All systems reviewed & are unremarkable except as noted in HPI and below
[2025-03-05 09:28] LABS: Alanine Aminotransferase 23 U/L (6-35); Albumin Level 3.3 g/dL (3.5-5.1); Alkaline Phosphatase 210 U/L (38-126); Anion Gap 7 mmol/L (4-12); Aspartate Amino Transferase 38 U/L (14-36); Bilirubin,Total 0.4 mg/dL (0.2-1.3); Blood Urea Nitrogen 11 mg/dL (7-17); Calcium 8.6 mg/dL (8.4-10.2); Carbon Dioxide 20 mmol/L (22-30); Chloride 107 mmol/L (98-107); Estimated CRCL calculation 105 ml/min; Estimated Glomerular Filt Rate > 60; Glucose 84 mg/dL (65-110); Potassium 3.8 mmol/L (3.4-5.0); Sodium 134 mmol/L (137-145); Total Protein 6.9 g/dL (6.3-8.2); Uric Acid 4.5 mg/dL (2.5-7.5)
[2025-03-05] MEDS: MAGNESIUM SULF 20GM/WATER500ML 500 ML 50 MG IV CONT ×2 (09:53→19:46)
[2025-03-05] MEDS: TRANEXAMIC ACID 1,000MG/ISO100 1,000 MG/100 ML BAG 200 MG IVPB (10:30)
[2025-03-05] MEDS: CARBOPROST TROMETHAMINE 250 MCG/ML AMPUL IM (12:22)
[2025-03-05] MEDS: LOPERAMIDE HCL 2 MG CAPSULE 4 MG PO (12:22)
[2025-03-05 13:01] LABS: Hematocrit 36.4 % (37.0-47.0); Hemoglobin 12.5 g/dL (12.0-15.0); Immature Granulocyte Percent A 1.5 % (0-0.5); Immature Platelet Fraction Pct 18.8 % (0.9-11.2); Lymphocytes Absolute Auto 0.90 K/mm3 (0.9-3.2); Mean Corpuscular HGB Conc 34.3 g/dl (32-36); Mean Corpuscular Hemoglobin 32.6 pg (26-34); Mean Corpuscular Volume 95.0 fl (80-100); Nucleated Red Blood Cells Absolute Auto 0.020 K/mm3 (0.0-0.012); Nucleated Red Blood Cells Perc 0.1 % (0.0-0.2); Platelet Count Result 68 k/mm3 (150-375); Red Blood Count 3.83 M/mm3 (4.2-5.4); White Blood Count 15.1 K/mm3 (4.5-10.0)
[2025-03-05 13:12] LABS: Fibrinogen 263 mg/dl (215-510)
[2025-03-05 13:20] LABS: Alanine Aminotransferase 26 U/L (6-35); Albumin Level 2.8 g/dL (3.5-5.1); Alkaline Phosphatase 191 U/L (38-126); Anion Gap 5 mmol/L (4-12); Aspartate Amino Transferase 39 U/L (14-36); Bilirubin,Total 0.4 mg/dL (0.2-1.3); Blood Urea Nitrogen 12 mg/dL (7-17); Calcium 7.9 mg/dL (8.4-10.2); Carbon Dioxide 18 mmol/L (22-30); Chloride 107 mmol/L (98-107); Estimated CRCL calculation 98 ml/min; Estimated Glomerular Filt Rate > 60; Glucose 169 mg/dL (65-110); Potassium 3.3 mmol/L (3.4-5.0); Sodium 130 mmol/L (137-145); Total Protein 5.9 g/dL (6.3-8.2)
[2025-03-05] MEDS: SIMETHICONE 80 MG TAB.CHEW PO (15:19)
--- NOTE | 2025-03-05 16:58 | OBPPTRN ---
Addendum entered by Hoda Burnett RN 03/05/25 16:59: at 1335 Original Note: Patient transferred to post room #282 via bed. Support person present. Oriented to unit, room, information board, rooming in, admission packet and security measures. Patient verbalizes understanding.
[2025-03-05] MEDS: DOCUSATE SODIUM 100 MG CAPSULE PO (17:51)
[2025-03-05] MEDS: IBUPROFEN 600 MG TABLET PO (17:51)
[2025-03-05 20:10] LABS: Hematocrit 32.1 % (37.0-47.0); Hemoglobin 11.1 g/dL (12.0-15.0); Immature Platelet Fraction Pct 17.8 % (0.9-11.2); Mean Corpuscular HGB Conc 34.6 g/dl (32-36); Mean Corpuscular Hemoglobin 33.2 pg (26-34); Mean Corpuscular Volume 96.1 fl (80-100); Platelet Count Result 65 k/mm3 (150-375); Red Blood Count 3.34 M/mm3 (4.2-5.4); White Blood Count 12.3 K/mm3 (4.5-10.0)
[2025-03-05 21:30] LABS: Anion Gap 4 mmol/L (4-12); Blood Urea Nitrogen 9 mg/dL (7-17); Calcium 6.6 mg/dL (8.4-10.2); Carbon Dioxide 22 mmol/L (22-30); Chloride 106 mmol/L (98-107); Estimated CRCL calculation 103 ml/min; Estimated Glomerular Filt Rate > 60; Glucose 141 mg/dL (65-110); Potassium 4.1 mmol/L (3.4-5.0); Sodium 132 mmol/L (137-145)
[2025-03-06 03:50] VITALS: BP 103/63
[2025-03-06 05:14] LABS: Hematocrit 29.6 % (37.0-47.0); Hemoglobin 9.9 g/dL (12.0-15.0); Immature Granulocyte Percent A 1.4 % (0-0.5); Immature Platelet Fraction Pct 14.3 % (0.9-11.2); Lymphocytes Absolute Auto 1.60 K/mm3 (0.9-3.2); Mean Corpuscular HGB Conc 33.4 g/dl (32-36); Mean Corpuscular Hemoglobin 32.9 pg (26-34); Mean Corpuscular Volume 98.3 fl (80-100); Nucleated Red Blood Cells Absolute Auto 0.000 K/mm3 (0.0-0.012); Nucleated Red Blood Cells Perc 0.0 % (0.0-0.2); Platelet Count Result 53 k/mm3 (150-375); Red Blood Count 3.01 M/mm3 (4.2-5.4); White Blood Count 9.4 K/mm3 (4.5-10.0)
[2025-03-06 05:24] LABS: Alanine Aminotransferase 18 U/L (6-35); Albumin Level 2.3 g/dL (3.5-5.1); Alkaline Phosphatase 141 U/L (38-126); Anion Gap 2 mmol/L (4-12); Aspartate Amino Transferase 29 U/L (14-36); Bilirubin,Total 0.2 mg/dL (0.2-1.3); Blood Urea Nitrogen 8 mg/dL (7-17); Calcium 6.6 mg/dL (8.4-10.2); Carbon Dioxide 20 mmol/L (22-30); Chloride 109 mmol/L (98-107); Estimated CRCL calculation 109 ml/min; Estimated Glomerular Filt Rate > 60; Glucose 95 mg/dL (65-110); Potassium 4.1 mmol/L (3.4-5.0); Sodium 131 mmol/L (137-145); Total Protein 4.9 g/dL (6.3-8.2)
[2025-03-06 07:40] VITALS: BP 112/70; PULSE 88; RESP 18; TEMP 36.9; O2SAT 98
[2025-03-06] MEDS: MULTIVIT/MIN/PREN/FOL AC/IRON TABLET 1 TAB PO (07:57)
[2025-03-06] MEDS: IBUPROFEN 600 MG TABLET PO (07:57)
[2025-03-06] MEDS: DOCUSATE SODIUM 100 MG CAPSULE PO ×2 (07:57→16:30)
--- NOTE | 2025-03-06 10:42 | P.PNOB_ITS ---
OB - PN: Subj Subjective Date/time seen: 03/06/25 10:42 Interval history: PPD#1 s/p c/b preeclampsia with severe features Feeling better since MgSO4 d/c'd, off at 12 hours as patient was extremely symptomatic and BP normotensive Bleeding mild this morning Tolerating general diet Bhatt catheter in place, draining clear urine Pain well controlled, slight headache OB - PN: Obj Data Labs 03/06/25 05:05 03/06/25 05:05 Labs: Laboratory Results - last 24 hr 03/05/25 03/05/25 03/05/25 12:46 12:46 20:04 WBC 15.1 H 12.3 H RBC 3.83 L 3.34 L Hgb 12.5 11.1 L Hct 36.4 L 32.1 L MCV 95.0 96.1 MCH 32.6 33.2 MCHC 34.3 34.6 RDW 13.8 14.0 Plt Count 68 L 65 L MPV 13.5 H 12.3 H Immature Gran % (Auto) 1.5 H Neut % (Auto) 85.0 H Lymph % (Auto) 5.9 L [place] % (Auto) 7.1 Eos % (Auto) 0.1 Baso % (Auto) 0.4 Lymph # (Auto) 0.90 [place] # (Auto) 1.1 H Eos # (Auto) 0.0 Baso # (Auto) 0.1 Abs Immat Gran (auto) 0.23 H Absolute Neuts (auto) 12.9 H Absolute Nucleated RBC 0.020 H Nucleated RBC % 0.1 % Immature Plt Fraction 18.8 H 17.8 H Fibrinogen 263 Cancelled Sodium 130 L Potassium 3.3 L Chloride 107 Carbon Dioxide 18 L Anion Gap 5 BUN 12 Creatinine 0.57 L Estim Creat Clear Calc 98 Estimated GFR > 60 Glucose 169 H Calcium 7.9 L Total Bilirubin 0.4 AST 39 H ALT 26 Alkaline Phosphatase 191 H Total Protein 5.9 L Albumin 2.8 L 03/05/25 03/06/25 21:12 05:05 WBC 9.4 RBC 3.01 L Hgb 9.9 L Hct 29.6 L MCV 98.3 MCH 32.9 MCHC 33.4 RDW 14.4 Plt Count 53 L MPV 12.2 H Immature Gran % (Auto) 1.4 H Neut % (Auto) 73.7 H Lymph % (Auto) 17.0 L [place] % (Auto) 6.9 Eos % (Auto) 0.6 Baso % (Auto) 0.4 Lymph # (Auto) 1.60 [place] # (Auto) 0.7 H Eos # (Auto) 0.1 Baso # (Auto) 0.0 Abs Immat Gran (auto) 0.13 H Absolute Neuts (auto) 6.9 H Absolute Nucleated RBC 0.000 Nucleated RBC % 0.0 % Immature Plt Fraction 14.3 H Fibrinogen Sodium 132 L 131 L Potassium 4.1 4.1 Chloride 106 109 H Carbon Dioxide 22 20 L Anion Gap 4 2 L BUN 9 8 Creatinine 0.54 L 0.51 L Estim Creat Clear Calc 103 109 Estimated GFR > 60 > 60 Glucose 141 H 95 Calcium 6.6 L 6.6 L Total Bilirubin 0.2 AST 29 ALT 18 Alkaline Phosphatase 141 H Total Protein 4.9 L Albumin 2.3 L OB - PN A/P Assessment and Plan (1) Pre-eclampsia, severe, delivered: Code(s): O14.14 - Severe pre-eclampsia complicating childbirth Status: Acute Assessment and Plan: - severe by: BP and platelets - headache mild this AM, BP normotensive - acute antihypertensives: labetalol 20mg IV, hydral 10mg IV - maintenance antihypertensives: none - plt 92 . 70 > 68 > 65 > 53 (drawn from IV as patient refused blood draw) - labs otherwise unremarkable - repeat labs at 1700 - s/p MgSO4 x12 hours for seizure prophylaxis - urinary catheter in to monitor output - discussed that epidural catheter must stay in until Plt >70 per anesthesia, need accurate blood count at next draw, reiterated that blood draw needs to come directly from vein, not from IV; patient voices understanding - continue to monitor BP closely (2) History of hemorrhage: Code(s): Z87.59 - Personal history of other complications of , childbirth and the puerperium Status: Acute Assessment and Plan: - s/p methergine and TXA at delivery, received hemabate and cytotec in early - bleeding mild this AM - repeat CBC at 1700, Hgb 12.2 > 11.1 > 9.9; unclear if hemodilution vs true decrease, will follow afternoon CBC Time Spent With Patient Time: Total time spent is greater than 50% in coordination of care (as documented) at patient's floor/unit and/or counseling patient: Review of Systems 2 Review of Systems: All systems reviewed & are unremarkable except as noted in HPI and below Exam 2 Const: General: comfortable and no acute distress O rientation/consciousness: patient oriented x3 Resp: Effort & Inspection: normal respiratory effort
--- NOTE | 2025-03-06 11:50 | PC.NURSE ---
Introductions were made, then consulted with patient to assess needs related to . Discussed with mother her?plans to feed?her and the?experience so far. Per mother she wishes to not put baby to breast, this is her 6th baby and it has always taken a few days for her milk to come in. Encouraged mother to use a breast pump when only take a bottle to protect her milk supply and it could bring in her milk a little sooner for her, she declined to use a breast pump at this time. She does have her own breast pump to use at home that she received through her insurance company. Resources provided for inpatient and outpatient services with the feeding sheet, mom/baby guide and name written on the communication board. Mother voiced understanding of information and will call if there is a request for assistance. Reported to the Primary RN.
[2025-03-06 12:55] VITALS: BP 108/75; PULSE 87; RESP 18; TEMP 37.7; O2SAT 96
--- NOTE | 2025-03-06 15:29 | WPDANLDPN2 ---
Anes-Prog Note L&D Date/Time: 03/06/25 15:29 Comfortable throughout: labor and delivery Neuraxial method: epidural Epidural/Spinal procedure site: clean & non-tender Neuro status: Neuro function grossly intact. Cardiovascular status: normal Respiratory status: normal Airway patency: baseline Mental status: baseline Post-Op hydration status: normal Vital Signs: Last Vital Signs Temp 37.7 C H 03/06/25 12:55 Pulse 87 03/06/25 12:55 Resp 18 03/06/25 12:55 BP 108/75 03/06/25 12:55 Pulse Ox 96 03/06/25 12:55 O2 Del Method Room Air 03/05/25 19:19 Pain score (VAS): 2 I/O: Intake & Output 03/05/25 03/06/25 03/06/25 23:59 07:59 15:59 Intake Total 890.9 Output Total 3800 1850 700 Balance -2909.1 -1850 -700 Post-procedural complaints: none Patient feedback: Patient satisfied with anesthetic care.
[2025-03-06 16:30] VITALS: BP 148/88
[2025-03-06] MEDS: ACETAMINOPHEN 325 MG TABLET 650 MG PO ×2 (16:30→23:09)
[2025-03-06 16:44] LABS: Hematocrit 33.9 % (37.0-47.0); Hemoglobin 11.3 g/dL (12.0-15.0); Immature Granulocyte Percent A 1.4 % (0-0.5); Immature Platelet Fraction Pct 13.3 % (0.9-11.2); Lymphocytes Absolute Auto 2.01 K/mm3 (0.9-3.2); Mean Corpuscular HGB Conc 33.3 g/dl (32-36); Mean Corpuscular Hemoglobin 32.9 pg (26-34); Mean Corpuscular Volume 98.8 fl (80-100); Nucleated Red Blood Cells Absolute Auto 0.000 K/mm3 (0.0-0.012); Nucleated Red Blood Cells Perc 0.0 % (0.0-0.2); Platelet Count Result 72 k/mm3 (150-375); Red Blood Count 3.43 M/mm3 (4.2-5.4); White Blood Count 10.1 K/mm3 (4.5-10.0)
[2025-03-06 19:45] VITALS: BP 138/88; PULSE 79; RESP 18; TEMP 36.6; O2SAT 99
[2025-03-06 23:15] VITALS: BP 136/81; PULSE 85; RESP 14; TEMP 36.6; O2SAT 99
[2025-03-07 04:30] VITALS: BP 118/69; PULSE 70; RESP 16; TEMP 36.7; O2SAT 98
[2025-03-07 05:17] LABS: Hematocrit 30.9 % (37.0-47.0); Hemoglobin 10.3 g/dL (12.0-15.0); Immature Granulocyte Percent A 2.5 % (0-0.5); Immature Platelet Fraction Pct 12.2 % (0.9-11.2); Lymphocytes Absolute Auto 2.31 K/mm3 (0.9-3.2); Mean Corpuscular HGB Conc 33.3 g/dl (32-36); Mean Corpuscular Hemoglobin 33.1 pg (26-34); Mean Corpuscular Volume 99.4 fl (80-100); Nucleated Red Blood Cells Absolute Auto 0.000 K/mm3 (0.0-0.012); Nucleated Red Blood Cells Perc 0.0 % (0.0-0.2); Platelet Count Result 75 k/mm3 (150-375); Red Blood Count 3.11 M/mm3 (4.2-5.4); White Blood Count 10.9 K/mm3 (4.5-10.0)
--- NOTE | 2025-03-07 06:51 | WPDANLDPN2 ---
Anes-Prog Note L&D Date/Time: 03/07/25 06:51 Comfortable throughout: labor and delivery Neuraxial method: epidural Epidural/Spinal procedure site: clean & non-tender Neuro status: Neuro function grossly intact. Cardiovascular status: normal Respiratory status: normal Airway patency: baseline Mental status: baseline Post-Op hydration status: normal Vital Signs: Last Vital Signs Temp 36.7 C 03/07/25 04:30 Pulse 70 03/07/25 04:30 Resp 16 03/07/25 04:30 BP 118/69 03/07/25 04:30 Pulse Ox 98 03/07/25 04:30 O2 Del Method Room Air 03/07/25 04:30 Pain score (VAS): 06/08 I/O: Intake & Output 03/06/25 03/06/25 03/07/25 15:59 23:59 07:59 Output Total 700 3370 1300 Balance -700 -3700 -1300 Post-procedural complaints: none Patient feedback: Patient satisfied with anesthetic care. Platelet count trending up, 75 today. No active bleeding or oozing. Epidural Cath DCd with tip intact. Epidural site clean and dry. Educated to go to ER for imaging if neurologic symptoms develop
[2025-03-07 07:58] VITALS: BP 125/93; PULSE 102; RESP 14; TEMP 36.8; O2SAT 100
--- NOTE | 2025-03-07 08:42 | PC.NURSE ---
Consulted with mother concerning any needs, per mother she is going to only bottle feed at this time, she isn't even sure if she wants to use her breast pump or put baby to breast after she gets home. We talked about the understanding of milk production, transition of milk, signs of adequate intake, transition of stool, prevention/relief of engorgement, plugged ducts, mastitis, responsive watching for feeding cues, the different methods of stimulating infant to breastfeed 1-3 hours after the start of the last feeding, community resources, and when to call a provider using the resource of the feeding sheet along with the mom and baby guide. Mother was given the handouts, Advice for Common Issues and Milk Storage Guidelines if she decides to put infant to breast or use her breast pump. Mother voiced understanding of the information shared, when to call for assistance, denies any additional assistance or education at this time. Reported to the Primary RN.
[2025-03-07] MEDS: MULTIVIT/MIN/PREN/FOL AC/IRON TABLET 1 TAB PO (09:17)
--- NOTE | 2025-03-07 10:54 | P.PNOB_ITS ---
OB - PN: Subj Subjective Date/time seen: 03/07/25 10:54 Interval history: PPD#2 s/p c/b preeclampsia with severe features Asymptomatic this morning Bleeding mild Voiding without issue Epidural catheter removed without issue Ready for discharge home OB - PN: Obj Data Labs 03/07/25 04:22 03/06/25 05:05 Labs: Laboratory Results - last 24 hr 03/06/25 03/07/25 16:32 04:22 WBC 10.1 H 10.9 H RBC 3.43 L 3.11 L Hgb 11.3 L 10.3 L Hct 33.9 L 30.9 L MCV 98.8 99.4 MCH 32.9 33.1 MCHC 33.3 33.3 RDW 14.7 H 14.6 H Plt Count 72 L 75 L MPV 12.5 H 12.6 H Immature Gran % (Auto) 1.4 H 2.5 H Neut % (Auto) 71.6 67.8 Lymph % (Auto) 19.9 21.1 [place] % (Auto) 5.9 6.8 Eos % (Auto) 0.8 1.3 Baso % (Auto) 0.4 0.5 Lymph # (Auto) 2.01 2.31 [place] # (Auto) 0.6 0.7 H Eos # (Auto) 0.1 0.1 Baso # (Auto) 0.0 0.1 Abs Immat Gran (auto) 0.14 H 0.27 H Absolute Neuts (auto) 7.2 H 7.4 H Absolute Nucleated RBC 0.000 0.000 Nucleated RBC % 0.0 0.0 % Immature Plt Fraction 13.3 H 12.2 H OB - PN A/P Assessment and Plan (1) Pre-eclampsia, severe, delivered: Code(s): O14.14 - Severe pre-eclampsia complicating childbirth Status: Acute Assessment and Plan: - severe by: BP and platelets - headache mild this AM, BP normotensive - acute antihypertensives: labetalol 20mg IV, hydral 10mg IV - maintenance antihypertensives: none - plt 92 . 70 > 68 > 65 > 53 (drawn from IV as patient refused blood draw) > 72 >75 - labs otherwise unremarkable - epidural catheter removed this AM without issue - s/p MgSO4 x12 hours for seizure prophylaxis - stable for discharge home - discussed warning signs, plan for BP check in office in 1 week (2) (spontaneous vaginal delivery): Code(s): O80 - Encounter for full-term uncomplicated delivery Status: Acute (3) History of hemorrhage: Code(s): Z87.59 - Personal history of other complications of , childbirth and the puerperium Status: Acute Assessment and Plan: - s/p methergine and TXA at delivery, received hemabate and cytotec in early - bleeding mild this AM - Hgb 12.2 > 11.1 > 9.9> 10.3 Plan day: 2 Plan: routine care and discharge home Time Spent With Patient Time: Total time spent is greater than 50% in coordination of care (as documented) at patient's floor/unit and/or counseling patient: Review of Systems 2 Review of Systems: All systems reviewed & are unremarkable except as noted in HPI and below Exam 2 Const: General: comfortable and no acute distress O rientation/consciousness: patient oriented x3 Resp: Effort & Inspection: normal respiratory effort
--- NOTE | 2025-03-07 11:04 | P.DS_ITS ---
DS: Admitting Diagnosis Discharge Date 03/07/25 Admitting Diagnosis labor DS: Discharge Diagnosis Discharge Diagnosis (1) (spontaneous vaginal delivery): Code(s): O80 - Encounter for full-term uncomplicated delivery Status: Acute (2) History of hemorrhage: Code(s): Z87.59 - Personal history of other complications of , childbirth and the puerperium Status: Acute (3) Pre-eclampsia, severe, delivered: Code(s): O14.14 - Severe pre-eclampsia complicating childbirth Status: Acute OB - DS: Summary OB Procedures : None OB Procedures Intrapartum: Spontaneous Vag Delivery OB Procedures: : Other (MgSO4 for seizure prophylaxis, BP management) Peripartum Data Laceration Description: None Episiotomy description: None Time Spent with Patient Time attestation: Total time spent providing and/or coordinating discharge services: DS: Data Data Completed and Pending Labs on day of discharge: Labs from last 24 hours 03/07/25 03/06/25 04:22 16:32 WBC 10.9 H 10.1 H RBC 3.11 L 3.43 L Hgb 10.3 L 11.3 L Hct 30.9 L 33.9 L MCV 99.4 98.8 MCH 33.1 32.9 MCHC 33.3 33.3 RDW 14.6 H 14.7 H Plt Count 75 L 72 L MPV 12.6 H 12.5 H Immature Gran % (Auto) 2.5 H 1.4 H Neut % (Auto) 67.8 71.6 Lymph % (Auto) 21.1 19.9 [place] % (Auto) 6.8 5.9 Eos % (Auto) 1.3 0.8 Baso % (Auto) 0.5 0.4 Lymph # (Auto) 2.31 2.01 [place] # (Auto) 0.7 H 0.6 Eos # (Auto) 0.1 0.1 Baso # (Auto) 0.1 0.0 Abs Immat Gran (auto) 0.27 H 0.14 H Absolute Neuts (auto) 7.4 H 7.2 H Absolute Nucleated RBC 0.000 0.000 Nucleated RBC % 0.0 0.0 % Immature Plt Fraction 12.2 H 13.3 H Discharge Plan Discharge Attending physician on discharge: Brodie Bowen Discharging Clinician: Brodie Bowen Patient Disposition: Home Activity: may shower Diet: as tolerated Patient Instructions: Antibiotic Form Patient Language: Vincentian Stand Alone Forms: General Discharge Information Follow-up/Referrals: Brodie Bowen MD [Physician, SCREEN [employer] 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
[2025-03-08 11:56] VITALS: BP 121/80; PULSE 87; RESP 18; TEMP 36.7; O2SAT 98
== END 2025-03-07 13:37 | disposition home or self-care (01) | DRG 560 ==
LOC: ANHLDR 04:34 → ANHOB2 14:00
PROVIDERS: Nurse Anesthetist, Certified Registered; Admitting Provider Obstetrics & Gynecology; PCP Physician Assistant; Visit Provider Obstetrics & Gynecology
DX: O14.14 Severe pre-eclampsia complicating childbirth (principal); O99.12 Other diseases of the blood and blood-forming organs and certain disorders involving the immune mechanism complicating childbirth; D69.6 Thrombocytopenia, unspecified; O43.893 Other placental disorders, third trimester; Z3A.37 37 weeks gestation of pregnancy; Z37.0 Single live birth
CPT/HCPCS: 36415; 80048; 80053; 84550; 85025; 85027; 85055; 85384; 86593; 86850; 86900; 86901; J0690; A9270; J0360; J0675; J2210; J2590; J2795; J3290; J3475; J7120